=== PATIENT | male | born 1960 | race Caucasian/White ===

== ENCOUNTER → 2023-05-21 09:21 | Outpatient (REF) | payer OTHER, SELFPAY ==
[2023-05-21 12:23] LABS: % Basophils 1.8 % (0-2); % Eosinophils 4.8 % (0-6); % Lymphocytes 40.1 % (20.5-51.1); % Neutrophils 41.3 % (42.2-75.2); Absolute Basophils 0.1 10^3/uL (0-0.2); Absolute Eosinophils 0.2 10^3/uL (0-0.7); Absolute Lymphocytes 1.7 10^3/uL (1.2-3.4); Absolute Monocytes 0.5 10^3/uL (0.1-0.6); Absolute Neutrophils 1.8 10^3/uL (1.4-6.5); Hematocrit 43.4 % (39.0-52.0); Hemoglobin 15.3 g/dL (13.0-18.0); Mean Corp Hgb Conc. 35.3 g/dL (33.0-37.0); Mean Corpuscular Hgb 34.4 pg (27.0-31.0); Mean Corpuscular Volume 97.5 fL (80.0-94.0); Nucleated Red Blood Cells % 0 % (-); Platelet Count 223 10^3/uL (130-400); Red Blood Cell Count 4.45 10^6/uL (4.70-6.10); Red Cell Dist. Width 13.4 % (11.5-14.5); White Blood Cell Count 4.3 10^3/uL (4.8-10.8)
[2023-05-21 12:56] LABS: ALT (SGPT) 35 U/L (0-50); AST (SGOT) 33 U/L (17-59); Albumin 3.8 g/dl (3.5-5.0); Alkaline Phosphatase 79 U/L (38-126); Blood Urea Nitrogen 20 mg/dl (9-20); Carbon Dioxide 25 mmol/L (22-30); Chloride 106 mmol/L (98-107); Glucose 95 mg/dl (70-99); Potassium 3.7 mmol/L (3.5-5.1); Sodium 136 mmol/L (135-145); Total Bilirubin 2.2 mg/dl (0.2-1.3); Total Protein 5.9 g/dl (6.3-8.2); eGFR > 60.00
[2023-05-23 10:40] LABS: Beta-2-Microglobulin 1.9 mg/L (<=3.0)
[2023-05-25 00:27] LABS: Albumin 3.81 g/dL (3.75-5.01); Alpha 1 Globulin 0.31 g/dL (0.19-0.46); Alpha 2 Globulin 0.63 g/dL (0.48-1.05); Free Kappa Light Chains,Quant 10.19 mg/L (3.30-19.40); IgA 64 mg/dL (68-408); IgG 422 mg/dL (768-1632); IgM 28 mg/dL (35-263); Immunofixation Electrophoresis IFE Done; Kappa/Lambda Fr Light Ratio 1.27 (0.26-1.65); Total Protein-Electrophoresis 5.8 g/dL (6.3-8.2)
== END ==
LOC: HWLAB 09:21
PROVIDERS: ATTENDING PHYSICIAN Internal Medicine Hematology & Oncology; FAMILY PHYSICIAN Registered Nurse
DX: C90.00 Multiple myeloma not having achieved remission (principal); E80.4 Gilbert syndrome
CPT/HCPCS: 36415; 80053; 82232; 82784; 83521; 84155; 84165; 85025; 86334

== ENCOUNTER → 2023-06-18 10:33 | Outpatient (REF) | payer OTHER, SELFPAY ==
[2023-06-18 12:02] LABS: % Basophils 1.7 % (0-2); % Eosinophils 3.6 % (0-6); % Immature Granulocytes 0.2 % (0-0.5); % Lymphocytes 39.7 % (20.5-51.1); % Monocytes 11.8 % (1.7-9.3); Absolute Basophils 0.1 10^3/uL (0-0.2); Absolute Eosinophils 0.2 10^3/uL (0-0.7); Absolute Lymphocytes 2.1 10^3/uL (1.2-3.4); Absolute Monocytes 0.6 10^3/uL (0.1-0.6); Absolute Neutrophils 2.3 10^3/uL (1.4-6.5); Hematocrit 42.8 % (39.0-52.0); Mean Corpuscular Hgb 34.2 pg (27.0-31.0); Mean Corpuscular Volume 97.7 fL (80.0-94.0); Mean Platelet Volume 10.2 fL (7.4-10.4); Nucleated Red Blood Cells % 0 % (-); Platelet Count 218 10^3/uL (130-400); Red Blood Cell Count 4.38 10^6/uL (4.70-6.10); Red Cell Dist. Width 13.3 % (11.5-14.5); White Blood Cell Count 5.2 10^3/uL (4.8-10.8)
[2023-06-18 12:26] LABS: ALT (SGPT) 29 U/L (0-50); AST (SGOT) 32 U/L (17-59); Albumin 3.9 g/dl (3.5-5.0); Alkaline Phosphatase 71 U/L (38-126); Blood Urea Nitrogen 17 mg/dl (9-20); Calcium 9.1 mg/dl (8.4-10.2); Carbon Dioxide 27 mmol/L (22-30); Chloride 103 mmol/L (98-107); Glucose 87 mg/dl (70-99); Potassium 4.3 mmol/L (3.5-5.1); Sodium 138 mmol/L (135-145); Total Bilirubin 2.5 mg/dl (0.2-1.3); Total Protein 5.8 g/dl (6.3-8.2); eGFR > 60.00
[2023-06-19 19:13] LABS: Beta-2-Microglobulin 1.9 mg/L (<=3.0)
[2023-06-21 19:37] LABS: Albumin 3.87 g/dL (3.75-5.01); Free Kappa Light Chains,Quant 8.63 mg/L (3.30-19.40); Free Lambda Light Chains,Quant 6.77 mg/L (5.71-26.30); IgA 59 mg/dL (68-408); IgG 391 mg/dL (768-1632); IgM 22 mg/dL (35-263); Immunofixation Electrophoresis IFE Done; Kappa/Lambda Fr Light Ratio 1.27 (0.26-1.65); Total Protein-Electrophoresis 5.8 g/dL (6.3-8.2)
== END ==
LOC: HWLAB 10:33
PROVIDERS: ATTENDING PHYSICIAN Internal Medicine Hematology & Oncology; FAMILY PHYSICIAN Registered Nurse
DX: C90.00 Multiple myeloma not having achieved remission (principal); E80.4 Gilbert syndrome
CPT/HCPCS: 36415; 80053; 82232; 82784; 83521; 84155; 84165; 85025; 86334

== ENCOUNTER → 2023-07-19 09:56 | Outpatient (REF) | payer OTHER, SELFPAY ==
[2023-07-19 13:56] LABS: % Eosinophils 3.1 % (0-6); % Immature Granulocytes 0.2 % (0-0.5); % Lymphocytes 26.8 % (20.5-51.1); % Monocytes 17.2 % (1.7-9.3); % Neutrophils 51.7 % (42.2-75.2); Absolute Basophils 0.1 10^3/uL (0-0.2); Absolute Eosinophils 0.2 10^3/uL (0-0.7); Absolute Lymphocytes 1.6 10^3/uL (1.2-3.4); Absolute Monocytes 1.1 10^3/uL (0.1-0.6); Absolute Neutrophils 3.2 10^3/uL (1.4-6.5); Hematocrit 45.4 % (39.0-52.0); Mean Corp Hgb Conc. 35.2 g/dL (33.0-37.0); Mean Corpuscular Hgb 35.2 pg (27.0-31.0); Mean Corpuscular Volume 99.8 fL (80.0-94.0); Mean Platelet Volume 10.8 fL (7.4-10.4); Nucleated Red Blood Cells % 0 % (-); Platelet Count 233 10^3/uL (130-400); Red Blood Cell Count 4.55 10^6/uL (4.70-6.10); Red Cell Dist. Width 13.2 % (11.5-14.5); White Blood Cell Count 6.1 10^3/uL (4.8-10.8)
[2023-07-19 14:04] LABS: ALT (SGPT) 38 U/L (0-50); AST (SGOT) 36 U/L (17-59); Albumin 4.2 g/dl (3.5-5.0); Alkaline Phosphatase 72 U/L (38-126); Blood Urea Nitrogen 22 mg/dl (9-20); Calcium 9.4 mg/dl (8.4-10.2); Carbon Dioxide 27 mmol/L (22-30); Chloride 105 mmol/L (98-107); Glucose 98 mg/dl (70-99); Potassium 3.7 mmol/L (3.5-5.1); Sodium 137 mmol/L (135-145); Total Protein 6.1 g/dl (6.3-8.2); eGFR > 60.00
[2023-07-21 22:15] LABS: Beta-2-Microglobulin 1.9 mg/L (<=3.0)
[2023-07-22 23:00] LABS: Albumin 4.07 g/dL (3.75-5.01); Alpha 1 Globulin 0.31 g/dL (0.19-0.46); Alpha 2 Globulin 0.63 g/dL (0.48-1.05); Free Lambda Light Chains,Quant 7.49 mg/L (5.71-26.30); IgA 56 mg/dL (68-408); IgG 445 mg/dL (768-1632); IgM 24 mg/dL (35-263); Immunofixation Electrophoresis IFE Done; Kappa/Lambda Fr Light Ratio 1.34 (0.26-1.65); Total Protein-Electrophoresis 6.1 g/dL (6.3-8.2)
== END ==
LOC: HWLAB 09:56
PROVIDERS: ATTENDING PHYSICIAN Internal Medicine Hematology & Oncology; FAMILY PHYSICIAN Registered Nurse
DX: C90.00 Multiple myeloma not having achieved remission (principal); E80.4 Gilbert syndrome
CPT/HCPCS: 36415; 80053; 82232; 82784; 83521; 84155; 84165; 85025; 86334

== ENCOUNTER → 2023-08-13 09:40 | Outpatient (REF) | payer OTHER, SELFPAY ==
[2023-08-13 10:59] LABS: % Basophils 1.7 % (0-2); % Eosinophils 9.2 % (0-6); % Immature Granulocytes 0.3 % (0-0.5); % Lymphocytes 32.7 % (20.5-51.1); % Monocytes 17.5 % (1.7-9.3); % Neutrophils 38.6 % (42.2-75.2); Absolute Basophils 0.1 10^3/uL (0-0.2); Absolute Eosinophils 0.3 10^3/uL (0-0.7); Absolute Lymphocytes 1.1 10^3/uL (1.2-3.4); Absolute Monocytes 0.6 10^3/uL (0.1-0.6); Absolute Neutrophils 1.4 10^3/uL (1.4-6.5); Hematocrit 40.8 % (39.0-52.0); Hemoglobin 14.2 g/dL (13.0-18.0); Mean Corp Hgb Conc. 34.8 g/dL (33.0-37.0); Mean Corpuscular Hgb 34.8 pg (27.0-31.0); Mean Platelet Volume 10.5 fL (7.4-10.4); Nucleated Red Blood Cells % 0 % (-); Platelet Count 193 10^3/uL (130-400); Red Blood Cell Count 4.08 10^6/uL (4.70-6.10); Red Cell Dist. Width 12.6 % (11.5-14.5); White Blood Cell Count 3.5 10^3/uL (4.8-10.8)
[2023-08-13 11:12] LABS: ALT (SGPT) 28 U/L (0-50); AST (SGOT) 30 U/L (17-59); Albumin 3.6 g/dl (3.5-5.0); Alkaline Phosphatase 79 U/L (38-126); Blood Urea Nitrogen 19 mg/dl (9-20); Calcium 8.7 mg/dl (8.4-10.2); Carbon Dioxide 29 mmol/L (22-30); Chloride 104 mmol/L (98-107); Glucose 106 mg/dl (70-99); Potassium 3.8 mmol/L (3.5-5.1); Sodium 139 mmol/L (135-145); Total Bilirubin 1.7 mg/dl (0.2-1.3); Total Protein 5.5 g/dl (6.3-8.2); eGFR > 60.00
== END ==
LOC: HWLAB 09:40
PROVIDERS: ATTENDING PHYSICIAN Internal Medicine Hematology & Oncology; FAMILY PHYSICIAN Registered Nurse
DX: C90.00 Multiple myeloma not having achieved remission (principal); E80.4 Gilbert syndrome
CPT/HCPCS: 36415; 80053; 82232; 82784; 83521; 84155; 84165; 85025; 86334

== ENCOUNTER → 2023-09-03 11:10 | Outpatient (REF) | payer OTHER, SELFPAY ==
[2023-09-03 15:07] LABS: % Basophils 1.3 % (0-2); % Eosinophils 6.2 % (0-6); % Immature Granulocytes 0.2 % (0-0.5); % Lymphocytes 28.4 % (20.5-51.1); % Monocytes 15.7 % (1.7-9.3); % Neutrophils 48.2 % (42.2-75.2); Absolute Basophils 0.1 10^3/uL (0-0.2); Absolute Eosinophils 0.4 10^3/uL (0-0.7); Absolute Lymphocytes 1.7 10^3/uL (1.2-3.4); Absolute Monocytes 0.9 10^3/uL (0.1-0.6); Absolute Neutrophils 2.9 10^3/uL (1.4-6.5); Hematocrit 44.1 % (39.0-52.0); Hemoglobin 15.3 g/dL (13.0-18.0); Mean Corp Hgb Conc. 34.7 g/dL (33.0-37.0); Mean Corpuscular Hgb 34.6 pg (27.0-31.0); Mean Corpuscular Volume 99.8 fL (80.0-94.0); Mean Platelet Volume 10.7 fL (7.4-10.4); Nucleated Red Blood Cells % 0 % (-); Platelet Count 220 10^3/uL (130-400); Red Blood Cell Count 4.42 10^6/uL (4.70-6.10); Red Cell Dist. Width 12.6 % (11.5-14.5)
[2023-09-03 15:16] LABS: Blood Urea Nitrogen 17 mg/dl (9-20); Calcium 9.1 mg/dl (8.4-10.2); Carbon Dioxide 28 mmol/L (22-30); Chloride 103 mmol/L (98-107); Glucose 96 mg/dl (70-99); Potassium 3.5 mmol/L (3.5-5.1); Sodium 140 mmol/L (135-145); eGFR > 60.00
== END ==
LOC: HWLAB 11:10
PROVIDERS: ATTENDING PHYSICIAN Registered Nurse
DX: R05.1 Acute cough (principal)
CPT/HCPCS: 36415; 71046; 80048; 85025

== ENCOUNTER → 2023-09-10 11:43 | Outpatient (REF) | payer OTHER, SELFPAY ==
[2023-09-10 15:37] LABS: % Basophils 1.3 % (0-2); % Eosinophils 10.5 % (0-6); % Immature Granulocytes 0.2 % (0-0.5); % Lymphocytes 33.6 % (20.5-51.1); % Monocytes 11.5 % (1.7-9.3); % Neutrophils 42.9 % (42.2-75.2); Absolute Basophils 0.1 10^3/uL (0-0.2); Absolute Eosinophils 0.5 10^3/uL (0-0.7); Absolute Lymphocytes 1.5 10^3/uL (1.2-3.4); Absolute Monocytes 0.5 10^3/uL (0.1-0.6); Hematocrit 43.2 % (39.0-52.0); Hemoglobin 15.4 g/dL (13.0-18.0); Mean Corp Hgb Conc. 35.6 g/dL (33.0-37.0); Mean Corpuscular Hgb 34.9 pg (27.0-31.0); Mean Platelet Volume 10.9 fL (7.4-10.4); Nucleated Red Blood Cells % 0 % (-); Platelet Count 253 10^3/uL (130-400); Red Blood Cell Count 4.41 10^6/uL (4.70-6.10); Red Cell Dist. Width 12.4 % (11.5-14.5); White Blood Cell Count 4.6 10^3/uL (4.8-10.8)
[2023-09-10 17:58] LABS: ALT (SGPT) 23 U/L (0-50); AST (SGOT) 30 U/L (17-59); Albumin 3.8 g/dl (3.5-5.0); Alkaline Phosphatase 83 U/L (38-126); Blood Urea Nitrogen 16 mg/dl (9-20); Calcium 9.2 mg/dl (8.4-10.2); Carbon Dioxide 26 mmol/L (22-30); Chloride 103 mmol/L (98-107); Glucose 108 mg/dl (70-99); Potassium 3.4 mmol/L (3.5-5.1); Sodium 138 mmol/L (135-145); Total Bilirubin 1.8 mg/dl (0.2-1.3); Total Protein 5.9 g/dl (6.3-8.2); eGFR > 60.00
== END ==
LOC: HWLAB 11:43
PROVIDERS: ATTENDING PHYSICIAN Internal Medicine Hematology & Oncology; FAMILY PHYSICIAN Registered Nurse
DX: C90.00 Multiple myeloma not having achieved remission (principal); E80.4 Gilbert syndrome
CPT/HCPCS: 36415; 80053; 82232; 82784; 83521; 84155; 84165; 85025; 86334

== ENCOUNTER → 2023-10-08 08:36 | Outpatient (REF) | payer OTHER, SELFPAY ==
[2023-10-08 11:52] LABS: % Basophils 1.4 % (0-2); % Eosinophils 8.9 % (0-6); % Immature Granulocytes 0.2 % (0-0.5); % Lymphocytes 33.1 % (20.5-51.1); % Monocytes 17.1 % (1.7-9.3); % Neutrophils 39.3 % (42.2-75.2); Absolute Basophils 0.1 10^3/uL (0-0.2); Absolute Eosinophils 0.4 10^3/uL (0-0.7); Absolute Lymphocytes 1.5 10^3/uL (1.2-3.4); Absolute Monocytes 0.8 10^3/uL (0.1-0.6); Absolute Neutrophils 1.7 10^3/uL (1.4-6.5); Hematocrit 40.5 % (39.0-52.0); Hemoglobin 14.4 g/dL (13.0-18.0); Mean Corp Hgb Conc. 35.6 g/dL (33.0-37.0); Mean Corpuscular Volume 98.5 fL (80.0-94.0); Mean Platelet Volume 10.2 fL (7.4-10.4); Nucleated Red Blood Cells % 0 % (-); Platelet Count 180 10^3/uL (130-400); Red Blood Cell Count 4.11 10^6/uL (4.70-6.10); Red Cell Dist. Width 13.1 % (11.5-14.5); White Blood Cell Count 4.4 10^3/uL (4.8-10.8)
[2023-10-08 12:03] LABS: ALT (SGPT) 28 U/L (0-50); AST (SGOT) 34 U/L (17-59); Albumin 3.8 g/dl (3.5-5.0); Alkaline Phosphatase 85 U/L (38-126); Blood Urea Nitrogen 19 mg/dl (9-20); Calcium 9.1 mg/dl (8.4-10.2); Carbon Dioxide 29 mmol/L (22-30); Chloride 105 mmol/L (98-107); Glucose 88 mg/dl (70-99); Potassium 3.5 mmol/L (3.5-5.1); Sodium 139 mmol/L (135-145); Total Bilirubin 1.9 mg/dl (0.2-1.3); Total Protein 5.8 g/dl (6.3-8.2); eGFR > 60.00
== END ==
LOC: PET 08:36
PROVIDERS: ATTENDING PHYSICIAN Internal Medicine Hematology & Oncology; FAMILY PHYSICIAN Registered Nurse
DX: C90.00 Multiple myeloma not having achieved remission (principal); E80.4 Gilbert syndrome
CPT/HCPCS: 36415; 80053; 82232; 82784; 83521; 84155; 84165; 85025; 86334

== ENCOUNTER → 2023-11-08 11:41 | Outpatient (REF) | payer OTHER, SELFPAY ==
[2023-11-08 14:56] LABS: % Basophils 1.4 % (0-2); % Eosinophils 7.6 % (0-6); % Monocytes 13.7 % (1.7-9.3); % Neutrophils 37.3 % (42.2-75.2); Absolute Basophils 0.1 10^3/uL (0-0.2); Absolute Eosinophils 0.3 10^3/uL (0-0.7); Absolute Lymphocytes 1.7 10^3/uL (1.2-3.4); Absolute Monocytes 0.6 10^3/uL (0.1-0.6); Absolute Neutrophils 1.6 10^3/uL (1.4-6.5); Hematocrit 39.3 % (39.0-52.0); Hemoglobin 13.8 g/dL (13.0-18.0); Mean Corp Hgb Conc. 35.1 g/dL (33.0-37.0); Mean Corpuscular Hgb 34.4 pg (27.0-31.0); Mean Platelet Volume 10.3 fL (7.4-10.4); Nucleated Red Blood Cells % 0 % (-); Platelet Count 196 10^3/uL (130-400); Red Blood Cell Count 4.01 10^6/uL (4.70-6.10); Red Cell Dist. Width 13.5 % (11.5-14.5); White Blood Cell Count 4.3 10^3/uL (4.8-10.8)
[2023-11-08 15:12] LABS: ALT (SGPT) 25 U/L (0-50); AST (SGOT) 33 U/L (17-59); Albumin 3.9 g/dl (3.5-5.0); Alkaline Phosphatase 83 U/L (38-126); Blood Urea Nitrogen 21 mg/dl (9-20); Carbon Dioxide 26 mmol/L (22-30); Chloride 105 mmol/L (98-107); Glucose 94 mg/dl (70-99); Potassium 3.9 mmol/L (3.5-5.1); Sodium 136 mmol/L (135-145); Total Bilirubin 1.9 mg/dl (0.2-1.3); Total Protein 5.9 g/dl (6.3-8.2); eGFR > 60.00
[2023-11-10 23:23] LABS: Beta-2-Microglobulin 1.9 mg/L (<=3.0)
== END ==
LOC: HWLAB 11:41
PROVIDERS: ATTENDING PHYSICIAN Internal Medicine Hematology & Oncology; FAMILY PHYSICIAN Registered Nurse
DX: C90.00 Multiple myeloma not having achieved remission (principal); E80.4 Gilbert syndrome
CPT/HCPCS: 36415; 80053; 82232; 82784; 83521; 84155; 84165; 85025; 86334

== ENCOUNTER → 2023-12-06 09:58 | Outpatient (REF) | payer OTHER, SELFPAY ==
[2023-12-06 12:25] LABS: % Basophils 1.6 % (0-2); % Eosinophils 5.6 % (0-6); % Immature Granulocytes 0.2 % (0-0.5); % Lymphocytes 37.9 % (20.5-51.1); % Monocytes 14.6 % (1.7-9.3); % Neutrophils 40.1 % (42.2-75.2); Absolute Basophils 0.1 10^3/uL (0-0.2); Absolute Eosinophils 0.3 10^3/uL (0-0.7); Absolute Lymphocytes 1.7 10^3/uL (1.2-3.4); Absolute Monocytes 0.7 10^3/uL (0.1-0.6); Absolute Neutrophils 1.8 10^3/uL (1.4-6.5); Hematocrit 42.9 % (39.0-52.0); Hemoglobin 14.9 g/dL (13.0-18.0); Mean Corp Hgb Conc. 34.7 g/dL (33.0-37.0); Mean Corpuscular Volume 100.7 fL (80.0-94.0); Mean Platelet Volume 10.6 fL (7.4-10.4); Nucleated Red Blood Cells % 0 % (-); Platelet Count 195 10^3/uL (130-400); Red Blood Cell Count 4.26 10^6/uL (4.70-6.10); Red Cell Dist. Width 13.2 % (11.5-14.5); White Blood Cell Count 4.5 10^3/uL (4.8-10.8)
[2023-12-06 12:34] LABS: ALT (SGPT) 28 U/L (0-50); AST (SGOT) 36 U/L (17-59); Albumin 3.7 g/dl (3.5-5.0); Alkaline Phosphatase 72 U/L (38-126); Blood Urea Nitrogen 16 mg/dl (9-20); Calcium 9.5 mg/dl (8.4-10.2); Carbon Dioxide 27 mmol/L (22-30); Chloride 105 mmol/L (98-107); Glucose 95 mg/dl (70-99); Potassium 3.8 mmol/L (3.5-5.1); Sodium 143 mmol/L (135-145); Total Bilirubin 1.5 mg/dl (0.2-1.3); Total Protein 5.8 g/dl (6.3-8.2); eGFR > 60.00
[2023-12-07 13:56] LABS: Beta-2-Microglobulin 2.1 mg/L (<=3.0)
[2023-12-09 00:10] LABS: Albumin 3.57 g/dL (3.75-5.01); Alpha 2 Globulin 0.56 g/dL (0.48-1.05); Free Kappa Light Chains,Quant 15.39 mg/L (3.30-19.40); Free Lambda Light Chains,Quant 8.26 mg/L (5.71-26.30); IgA 54 mg/dL (68-408); IgG 537 mg/dL (768-1632); IgM 22 mg/dL (35-263); Immunofixation Electrophoresis IFE Done; Kappa/Lambda Fr Light Ratio 1.86 (0.26-1.65); Total Protein-Electrophoresis 5.5 g/dL (6.3-8.2)
== END ==
LOC: HWLAB 09:58
PROVIDERS: ATTENDING PHYSICIAN Internal Medicine Hematology & Oncology; FAMILY PHYSICIAN Registered Nurse
DX: C90.00 Multiple myeloma not having achieved remission (principal); E80.4 Gilbert syndrome
CPT/HCPCS: 36415; 80053; 82232; 82784; 83521; 84155; 84165; 85025; 86334

== ENCOUNTER → 2024-01-03 10:00 | Outpatient (REF) | payer OTHER, SELFPAY ==
[2024-01-03 12:41] LABS: % Basophils 1.1 % (0-2); % Eosinophils 7.8 % (0-6); % Immature Granulocytes 0.2 % (0-0.5); % Lymphocytes 45.2 % (20.5-51.1); % Neutrophils 33.7 % (42.2-75.2); Absolute Basophils 0.1 10^3/uL (0-0.2); Absolute Eosinophils 0.4 10^3/uL (0-0.7); Absolute Lymphocytes 2.2 10^3/uL (1.2-3.4); Absolute Monocytes 0.6 10^3/uL (0.1-0.6); Absolute Neutrophils 1.6 10^3/uL (1.4-6.5); Hematocrit 41.7 % (39.0-52.0); Hemoglobin 14.9 g/dL (13.0-18.0); Mean Corp Hgb Conc. 35.7 g/dL (33.0-37.0); Mean Corpuscular Volume 95.2 fL (80.0-94.0); Mean Platelet Volume 10.9 fL (7.4-10.4); Nucleated Red Blood Cells % 0 % (-); Platelet Count 172 10^3/uL (130-400); Red Blood Cell Count 4.38 10^6/uL (4.70-6.10); Red Cell Dist. Width 13.2 % (11.5-14.5); White Blood Cell Count 4.8 10^3/uL (4.8-10.8)
[2024-01-03 12:49] LABS: ALT (SGPT) 25 U/L (0-50); AST (SGOT) 26 U/L (17-59); Albumin 3.9 g/dl (3.5-5.0); Alkaline Phosphatase 65 U/L (38-126); Blood Urea Nitrogen 15 mg/dl (9-20); Carbon Dioxide 26 mmol/L (22-30); Chloride 104 mmol/L (98-107); Glucose 105 mg/dl (70-99); Potassium 3.7 mmol/L (3.5-5.1); Sodium 141 mmol/L (135-145); Total Bilirubin 1.8 mg/dl (0.2-1.3); Total Protein 5.6 g/dl (6.3-8.2); eGFR > 60.00
[2024-01-05 21:06] LABS: Beta-2-Microglobulin 2.1 mg/L (<=3.0)
== END ==
LOC: HWLAB 10:00
PROVIDERS: ATTENDING PHYSICIAN Internal Medicine Hematology & Oncology; FAMILY PHYSICIAN Registered Nurse
DX: C90.00 Multiple myeloma not having achieved remission (principal); E80.4 Gilbert syndrome
CPT/HCPCS: 36415; 80053; 82232; 82784; 83521; 84155; 84165; 85025; 86334

== ENCOUNTER → 2024-01-31 10:13 | Outpatient (REF) | payer OTHER, SELFPAY ==
[2024-01-31 11:23] LABS: % Basophils 1.5 % (0-2); % Eosinophils 10.7 % (0-6); % Immature Granulocytes 0.2 % (0-0.5); % Lymphocytes 46.5 % (20.5-51.1); % Neutrophils 27.1 % (42.2-75.2); Absolute Basophils 0.1 10^3/uL (0-0.2); Absolute Eosinophils 0.5 10^3/uL (0-0.7); Absolute Lymphocytes 2.1 10^3/uL (1.2-3.4); Absolute Monocytes 0.6 10^3/uL (0.1-0.6); Absolute Neutrophils 1.2 10^3/uL (1.4-6.5); Hematocrit 41.2 % (39.0-52.0); Hemoglobin 14.8 g/dL (13.0-18.0); Mean Corp Hgb Conc. 35.9 g/dL (33.0-37.0); Mean Corpuscular Hgb 33.4 pg (27.0-31.0); Mean Platelet Volume 10.1 fL (7.4-10.4); Nucleated Red Blood Cells % 0 % (-); Platelet Count 208 10^3/uL (130-400); Red Blood Cell Count 4.43 10^6/uL (4.70-6.10); White Blood Cell Count 4.6 10^3/uL (4.8-10.8)
[2024-01-31 11:55] LABS: ALT (SGPT) 23 U/L (0-50); AST (SGOT) 26 U/L (17-59); Albumin 3.8 g/dl (3.5-5.0); Alkaline Phosphatase 75 U/L (38-126); Blood Urea Nitrogen 18 mg/dl (9-20); Carbon Dioxide 28 mmol/L (22-30); Chloride 101 mmol/L (98-107); Glucose 106 mg/dl (70-99); Potassium 3.6 mmol/L (3.5-5.1); Sodium 138 mmol/L (135-145); Total Bilirubin 2.1 mg/dl (0.2-1.3); Total Protein 5.8 g/dl (6.3-8.2); eGFR > 60.00
[2024-02-01 19:07] LABS: Beta-2-Microglobulin 1.9 mg/L (<=3.0)
[2024-02-03 00:54] LABS: Albumin 3.62 g/dL (3.75-5.01); Alpha 1 Globulin 0.32 g/dL (0.19-0.46); Alpha 2 Globulin 0.63 g/dL (0.48-1.05); Free Kappa Light Chains,Quant 17.92 mg/L (3.30-19.40); Free Lambda Light Chains,Quant 8.56 mg/L (5.71-26.30); IgA 53 mg/dL (68-408); IgG 576 mg/dL (768-1632); IgM 30 mg/dL (35-263); Immunofixation Electrophoresis IFE Done; Kappa/Lambda Fr Light Ratio 2.09 (0.26-1.65); Monoclonal Protein 0.24 g/dL (<=0.00); Total Protein-Electrophoresis 5.7 g/dL (6.3-8.2)
== END ==
LOC: HWLAB 10:13
PROVIDERS: ATTENDING PHYSICIAN Internal Medicine Hematology & Oncology; FAMILY PHYSICIAN Registered Nurse
DX: C90.00 Multiple myeloma not having achieved remission (principal); E80.4 Gilbert syndrome
CPT/HCPCS: 36415; 80053; 82232; 82784; 83521; 84155; 84165; 85025; 86334

== ENCOUNTER 2024-02-12 20:22 | Inpatient (IN) | payer OTHER, SELFPAY ==
[2024-02-12] VITALS (7 sets, daily range): BP systolic 124–153; BP diastolic 88–107; BMI 29.3; BMI 28.9
[2024-02-12 12:31] LABS: ALT (SGPT) 36 U/L (0-50); AST (SGOT) 31 U/L (17-59); Albumin 3.8 g/dl (3.5-5.0); Alkaline Phosphatase 75 U/L (38-126); Blood Urea Nitrogen 19 mg/dl (9-20); Calcium 9.2 mg/dl (8.4-10.2); Carbon Dioxide 27 mmol/L (22-30); Chloride 102 mmol/L (98-107); Estimated Creatinine Clearance 108 ml/min; Glucose 103 mg/dl (70-99); Lipase 45 U/L (23-300); Potassium 4.1 mmol/L (3.5-5.1); Sodium 137 mmol/L (135-145); Total Bilirubin 3.5 mg/dl (0.2-1.3); Total Protein 5.8 g/dl (6.3-8.2); eGFR > 60.00
[2024-02-12 12:40] LABS: % Basophils 0.5 % (0-2); % Eosinophils 1.1 % (0-6); % Immature Granulocytes 0.7 % (0-0.5); % Lymphocytes 15.4 % (20.5-51.1); % Monocytes 7.3 % (1.7-9.3); Absolute Eosinophils 0.1 10^3/uL (0-0.7); Absolute Immature Granulocytes 0.1 10^3/uL (0-0.05); Absolute Lymphocytes 1.2 10^3/uL (1.2-3.4); Absolute Monocytes 0.6 10^3/uL (0.1-0.6); Hematocrit 43.3 % (39.0-52.0); Hemoglobin 14.9 g/dL (13.0-18.0); Mean Corp Hgb Conc. 34.4 g/dL (33.0-37.0); Mean Corpuscular Hgb 34.4 pg (27.0-31.0); Mean Platelet Volume 10.5 fL (7.4-10.4); Nucleated Red Blood Cells % 0 % (-); Platelet Count 166 10^3/uL (130-400); Red Blood Cell Count 4.33 10^6/uL (4.70-6.10); Red Cell Dist. Width 13.6 % (11.5-14.5)
[2024-02-12 12:42] LABS: Troponin I < 0.012 ng/ml
[2024-02-12] MEDS: MORPHINE SULFATE 4 MG IV ×2 (13:13→14:53)
--- NOTE | 2024-02-12 14:21 | ED.GENMED ---
History of Present Illness
General
Chief Complaint: Back Pain
Source: patient
Exam Limitations: none
Time Seen by Provider: 02/12/24 11:42
History of Present Illness
History of Present Illness:
63-year-old male who presents with pain in his upper abdominal region rating around toward his back. Patient states symptoms started yesterday. He was lifting firewood the day before yesterday so wonders if it is musculoskeletal but the patient
states that the pain persist. He was not really able to sleep well. Pain is a little worse when he lays back. 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 Patient denies shortness of breath. No vomiting. No
fevers.
Past History
Past History
ED Past Medical History: Cancer (Multiple myeloma) and Other (Anxiety, Gillbert's syndrome)
ED Past Surgical History: None
Social History
Tobacco: Smoker
Alcohol: Occasional
Personal:
Living: with family
Employment: Employed
Phy Exam
Physical Exam
Physical Exam:
CONSTITUTIONAL Patient alert and oriented to person, place and time. Well-appearing. Vital signs reviewed.
HEAD atraumatic, normocephalic.
EYES eyelids normal to inspection, Extraocular muscles intact, Conjunctiva normal, Sclera normal.
NECK normal range of motion, Trachea midline, no jugular venous distention.
RESPIRATORY CHEST No respiratory distress noted, Chest expansion equal, Bilateral breath sounds clear.
CARDIOVASCULAR regular rate and rhythm, Heart sounds normal.
ABDOMEN moderate epigastric tenderness, Bowel sounds normal. No distention.
BACK normal inspection, no obvious deformities
UPPER EXTREMITY range of motion normal, Motor strength normal, no cyanosis, no edema.
LOWER EXTREMITY range of motion normal, Motor strength normal, no cyanosis, no edema.
NEURO Speech normal, No focal motor deficits, Judi coma scale 15, Memory normal, Cranial Nerves intact to screening exam.
SKIN skin warm, dry, and normal in color.
Course
Orders/Labs/Results
Orders:
Orders
02/12/24 11:53
Electrocardiogram (*1) Stat
Reason for Study: Abdominal Pain
EKG- Treatment ONCE
02/12/24 12:03
Complete Blood Count/With Diff Urgent
Comprehensive Metabolic Panel Urgent
Direct Bilirubin Urgent
Lipase Urgent
Troponin I Urgent
02/12/24 12:48
CT Chest/abd/pelvis Angio W/wo Urgent
Comment:
Reason For Exam: chest, back and upper abd pain
02/12/24 13:11
Morphine Sulfate 4 mg .ROUTE .STK-MED ONE
02/12/24 13:13
Morphine Sulfate 4 mg IV NOW STA
02/12/24 13:59
Urinalysis Reflex To Culture Urgent
Date Specimen was Collected: 02/12/24
Time Specimen was Collected: 13:52
02/12/24 14:45
Morphine Sulfate 4 mg IV NOW STA
02/12/24 17:08
Piperacillin/Tazo 3.375 Gram [Zosyn] 3.375 gram in 50 ml IV NOW
02/12/24 17:26
Add On- LAB Urgent
Tests Added?: direct bilirubin
02/12/24 17:31
US Abdomen Limited Urgent
Comment:
Reason For Exam: RUQ abdominal pain
Abnormal Lab Results
02/12/24 02/12/24
12:03 13:59
RBC 4.33 L 10^6/uL
(4.70-6.10)
MCV 100.0 H fL
(80.0-94.0)
MCH 34.4 H pg
(27.0-31.0)
MPV 10.5 H fL
(7.4-10.4)
Abs Immat Gran (auto) 0.1 H 10^3/uL
(0-0.05)
Immature Gran % 0.7 H %
(0-0.5)
Lymphocytes % 15.4 L %
(20.5-51.1)
Glucose 103 H mg/dl
(70-99)
Total Bilirubin 3.5 H mg/dl
(0.2-1.3)
Total Protein 5.8 L g/dl
(6.3-8.2)
Urine Ketones 2+ A
(Negative)
02/12/24 12:03
02/12/24 12:03
Vital Signs
Initial and Last Documented VS:
Initial Vital Signs
Temp Pulse Resp BP Pulse Ox
98.2 F 82 18 153/107 95
02/12/24 11:12 02/12/24 11:12 02/12/24 11:12 02/12/24 11:12 02/12/24 11:12
Last Documented Vital Signs
Temp Pulse Resp BP Pulse Ox
98.2 F 64 21 148/99 97
02/12/24 11:12 02/12/24 17:00 02/12/24 17:00 02/12/24 13:13 02/12/24 17:15
MDM/Problems Addressed
MDM/Problems Addressed:
Cholelithiasis, cholecystitis, chronic multiple myeloma
*Radiology
Radiology exam reviewed: preliminary read by ED provider (Gallbladder neck stone with suspected cholecystitis)
*Pulse Oximetry
Patient hypoxic: no
*EKG
Interpreted by ED Provider?: Yes
Interpretation: normal
Rate: normal
Rhythm: sinus
QRS Pattern: normal QRS
Ischemia: no ischemia
*Fruit Sorter Interpretation
Rate: normal
Interpretation: normal
Rhythm: sinus
*Critical Care Note
Total Time (30-74mins, 75-104mins- exclusive of procedures): Not Applicable
Data Reviewed
Source: patient and family
Patient Management
Discussion with other providers: Hospitalist and Kier Pleater (Case discussed with general surgery)
Escalation/DeEscalation of care consider admission/obs:
63-year-old male with persistent pain in the upper abdomen and back. Found to have gallbladder neck stone and cholecystitis. IV antibiotics and admit. Case discussed with surgery
ED Attending Note
-
Portions of this chart may have been created with voice recognition software.� Occasional wrong word or��sound alike� substitutions may have occurred due to the inherent limitations of voice recognition software.
Discharge Plan
Departure
Patient Disposition: Admit
Date of Disposition: 02/12/24
Time of Disposition: 17:10
Admit to: Med/Surg
Presentation/result/management discussed w/ accepting MD/DO: Hospitalist
Discharge Problem:
Acute cholecystitis, Cholelithiasis, Gilbert syndrome
Prescriptions:
No Action
bupropion HCl 300 MG tablet extended release 24 hr
300 mg PO DAILY
atorvastatin 40 MG tablet
40 mg PO QPM Qty: 30 0RF
aspirin 81 MG tablet,chewable
81 mg PO DAILY Qty: 30 0RF
acyclovir 400 mg tablet
400 mg PO BID
pantoprazole 20 mg tablet,delayed release (DR/EC)
20 mg PO DAILY
escitalopram oxalate 10 mg tablet
10 mg PO DAILY
pregabalin 75 mg capsule
75 mg PO QPM
metoprolol succinate 25 MG tablet extended release 24 hr
25 mg PO QPM
Referrals:
Osmin Elam CRNP [Family Provider] -
Interventions
Interventions:
*Risk Screen - Suicide Last Done: 02/12/24 11:12
*General Assessment Last Done: 02/12/24 11:12
*Neglect/Abuse Screening Last Done: 02/12/24 11:12
ED-Musculoskeletal Assessment Last Done: 02/12/24 12:13
Discharge Date and Time
Print Language: LITHUANIAN
[2024-02-12 14:42] LABS: Urine Albumin Negative (Neg - Trace); Urine Bilirubin Negative (Negative); Urine Character Clear (Clear); Urine Color Yellow; Urine Glucose Negative (Negative); Urine Ketone 2+ (Negative); Urine Leukocyte Negative (Negative); Urine Nitrite Negative (Negative); Urine Occult Blood Negative (Negative); Urine Specific Gravity 1.015 (<1.030); Urine Urobilinogen Negative (Neg - 1+)
[2024-02-12] MEDS: ZOSYN 50 IV ×2 (17:22→23:53)
[2024-02-12 18:00] LABS: Direct Bilirubin 0.2 mg/dl (0.0-0.4)
[2024-02-12] MEDS: DILAUDID 1 MG IV (18:00)
--- NOTE | 2024-02-12 19:37 | HPS.HSE ---
Family Physician
-
Family Physician: MICHAEL Bello
Chief Complaint
-
abdominal pain
History of Present Illness
63-year-old male past medical history of multiple myeloma, hypertension, anxiety, Gilbert's syndrome, hyperlipidemia presenting with right upper abdominal pain rating around to his back starting yesterday. He denies any nausea or vomiting. Denies
any diarrhea. He denies any chest pain or shortness of breath.
He smokes occasionally. He drinks alcohol occasionally.
He has multiple family members who have had their gallbladders removed.
Medical History
Past Medical History
Past Medical History: Reports Other (multiple myeloma, hypertension, anxiety, Gilbert's syndrome, hyperlipidemia)
Past Surgical History: Reports None
Social History
Tobacco: Smoker
Alcohol: Occasional
Drug: None
Family History
Family History: Not pertinent
Allergies / Home Medications
Allergies reflects when Allergies were last updated in [facility].
Home Medications with original date entered in [facility]
Allergy/Medication List:
Allergies
Allergy/AdvReac Type Severity Reaction Status Date / Time
No Known Allergies Allergy Verified 02/12/24 11:12
Home Medications
bupropion HCl 300 mg 24 hr tablet, extended release 300 mg PO DAILY Mental Health/Anxiety 12/05/19
aspirin 81 mg chewable tablet 81 mg PO DAILY #30 tabs 12/09/19
atorvastatin 40 mg tablet 40 mg PO QPM #30 tabs 12/09/19
acyclovir 400 mg tablet 400 mg PO BID 02/12/24
escitalopram oxalate 10 mg tablet 10 mg PO DAILY 02/12/24
metoprolol succinate 25 mg tablet,extended release 24 hr 25 mg PO QPM 02/12/24
pantoprazole 20 mg tablet,delayed release 20 mg PO DAILY 02/12/24
pregabalin 75 mg capsule 75 mg PO QPM 02/12/24
Review of Systems
-
History Source: Patient
A 12 point ROS was completed and negative except as noted: Yes
Constitutional: Reports No Symptoms
EENT: Reports No Symptoms
Respiratory: Reports No Symptoms
Cardiac: Reports No Symptoms
Abdomen/GI: Reports See HPI
: Reports No Symptoms
Musculoskeletal: Reports No Symptoms
Skin: Reports No Symptoms
Neurological: Reports No Symptoms
Endocrine: Reports No Symptoms
Hematologic/Lymphatic: Reports No Symptoms
Psych: Reports No Symptoms
Physical Exam
Vital Signs
Vital Signs
Temp Pulse Resp BP Pulse Ox
98.2 F 64 21 148/99 97
02/12/24 11:12 02/12/24 17:00 02/12/24 17:00 02/12/24 13:13 02/12/24 17:15
Physical Exam
General: Well Developed, Well Nourished and No Apparent Distress
HEENT: NormoCephalic, Moist mucous membranes and Atraumatic
Respiratory: Clear
Cardiac: S1/S2 and Regular Rhythm; No Murmur or Rub
GI: Soft, Non Distended, Normal Bowel Sounds and Tender (RUQ ); No Organomegaly
Rectal: Deferred by Provider
Musculoskeletal: No Clubbing, No Cyanosis and No Edema
Skin: No Rash
Neuro: Nonfocal/grossly intact
Laboratory Results
-
02/12/24 12:03
02/12/24 12:03
Laboratory Results
Total Bilirubin 3.5 mg/dl (0.2-1.3) H 02/12/24 12:03
AST 31 U/L (17-59) 02/12/24 12:03
ALT 36 U/L (0-50) 02/12/24 12:03
Alkaline Phosphatase 75 U/L (38-126) 02/12/24 12:03
Troponin I < 0.012 ng/ml 02/12/24 12:03
Lipase 45 U/L (23-300) 02/12/24 12:03
Data Reviewed
-
Lab Data: Labs Reviewed by me
Old Records: Reviewed
Impression/Plan
-
IMPRESSION:
PLAN:
# Acute cholecystitis
-CT chest abdomen pelvis shows acute cholecystitis
-Ultrasound pending
-N.p.o.
-IV fluids
-Zosyn
-Dilaudid
-General Surgery consult
Multiple myeloma
-Continue prophylactic acyclovir
Gilbert's syndrome
Anxiety/depression
-Continue bupropion, Lexapro
GERD
-Continue Protonix
Hypertension
-Continue metoprolol
Hyperlipidemia
-Continue statin
Spinal Stenosis
-continue pregabalin
Full code
DVT prophylaxis-SCDs
N.p.o.
[2024-02-12] MEDS: DILAUDID 0.5 MG IV (21:16)
[2024-02-12] MEDS: NSS 1000 IV (21:16)
[2024-02-12] MEDS: ZOVIRAX 400 MG PO (21:16)
[2024-02-13] MEDS: DILAUDID 0.5 MG IV ×5 (00:12→21:22)
[2024-02-13 05:47] LABS: % Basophils 0.7 % (0-2); % Eosinophils 0.8 % (0-6); % Immature Granulocytes 0.5 % (0-0.5); % Lymphocytes 16.6 % (20.5-51.1); % Monocytes 9.1 % (1.7-9.3); % Neutrophils 72.3 % (42.2-75.2); Absolute Basophils 0.1 10^3/uL (0-0.2); Absolute Eosinophils 0.1 10^3/uL (0-0.7); Absolute Lymphocytes 1.4 10^3/uL (1.2-3.4); Absolute Monocytes 0.8 10^3/uL (0.1-0.6); Absolute Neutrophils 6.1 10^3/uL (1.4-6.5); Hematocrit 42.7 % (39.0-52.0); Hemoglobin 14.3 g/dL (13.0-18.0); Mean Corp Hgb Conc. 33.5 g/dL (33.0-37.0); Mean Corpuscular Hgb 34.1 pg (27.0-31.0); Mean Corpuscular Volume 101.9 fL (80.0-94.0); Mean Platelet Volume 10.8 fL (7.4-10.4); Nucleated Red Blood Cells % 0 % (-); Platelet Count 159 10^3/uL (130-400); Red Blood Cell Count 4.19 10^6/uL (4.70-6.10); Red Cell Dist. Width 13.8 % (11.5-14.5); White Blood Cell Count 8.4 10^3/uL (4.8-10.8)
[2024-02-13] MEDS: ZOSYN 50 IV ×4 (06:04→23:47)
[2024-02-13 06:26] LABS: ALT (SGPT) 133 U/L (0-50); AST (SGOT) 110 U/L (17-59); Albumin 3.6 g/dl (3.5-5.0); Alkaline Phosphatase 109 U/L (38-126); Blood Urea Nitrogen 13 mg/dl (9-20); Calcium 8.3 mg/dl (8.4-10.2); Carbon Dioxide 29 mmol/L (22-30); Chloride 98 mmol/L (98-107); Estimated Creatinine Clearance 95 ml/min; Glucose 88 mg/dl (70-99); Potassium 3.7 mmol/L (3.5-5.1); Sodium 138 mmol/L (135-145); Total Bilirubin 4.6 mg/dl (0.2-1.3); Total Protein 5.7 g/dl (6.3-8.2); eGFR > 60.00
[2024-02-13 07:59] VITALS: BP 149/82
--- NOTE | 2024-02-13 08:34 | CON.GS ---
Medical History
-
Chief Complaint: RUQ pain
History of Present Illness:
Mr. Cash is a 63 yo male with a h/o Gilbert's and multiple myeloma on immunotherapy (Darzalex LD on January 31 and Revlimid cycles) who presents with persistent right upper quadrant pain radiating into his back and up into his shoulders for
the past 2 days. He denies prior episodes. He denies nausea, vomiting, fevers or chills. He denies bowel or bladder changes. On exam, there is tenderness to the RUQ without rebound, guarding or rigidity.
Past Medical History
Past Medical History: Cancer (multiple myeloma on active treatment with immunotherapy, XRT in 2019 to chest and shoulder), Hypercholesterolemia, Psychiatric (depression/anxiety) and Other (neuropathy and obesity)
Past Surgical History: None
Social History
Tobacco: Non-Smoker
Alcohol: Occasional
Living: With Family
Family History
Family History: Reviewed & Not Pertinent
Allergies / Home Medications
Allergy/AdvReac Type Severity Reaction Status Date / Time
No Known Allergies Allergy Verified 02/12/24 11:12
�Medication �Instructions �Recorded �Confirmed �Type
bupropion HCl 300 mg 24 hr tablet, 300 mg PO DAILY Mental 12/05/19 02/12/24 History
extended release Health/Anxiety
aspirin 81 mg chewable tablet 81 mg PO DAILY #30 tabs 12/09/19 02/12/24 Rx
atorvastatin 40 mg tablet 40 mg PO QPM #30 tabs 12/09/19 02/12/24 Rx
acyclovir 400 mg tablet 400 mg PO BID 02/12/24 02/12/24 History
escitalopram oxalate 10 mg tablet 10 mg PO DAILY 02/12/24 02/12/24 History
metoprolol succinate 25 mg 25 mg PO QPM 02/12/24 02/12/24 History
tablet,extended release 24 hr
pantoprazole 20 mg tablet,delayed 20 mg PO DAILY 02/12/24 02/12/24 History
release
pregabalin 75 mg capsule 75 mg PO QPM 02/12/24 02/12/24 History
Review of Systems
-
History Source: Patient
All other systems: Negative unless noted
A 10 point review of systems was completed, and was negative except as per HPI.
Physical Exam
Vital Signs
Temp Pulse Resp BP Pulse Ox
99.7 F 76 16 149/82 98
02/13/24 07:59 02/13/24 07:59 02/13/24 07:59 02/13/24 07:59 02/13/24 07:59
02/12/24 02/13/24 02/14/24
06:59 06:59 06:59
Actual Weight 88.677 kg
Body Mass Index (BMI) 28.9
Lab Results
02/13/24 04:15
02/13/24 04:15
WBC 8.4 10^3/uL (4.8-10.8) 02/13/24 04:15
Hgb 14.3 g/dL (13.0-18.0) 02/13/24 04:15
Hct 42.7 % (39.0-52.0) 02/13/24 04:15
Plt Count 159 10^3/uL (130-400) 02/13/24 04:15
Abs Immat Gran (auto) 0.0 10^3/uL (0-0.05) 02/13/24 04:15
Neutrophils % 72.3 % (42.2-75.2) 02/13/24 04:15
Physical Exam
General: Well Developed and Well Nourished
HEENT: Moist Mucous Membranes
Respiratory: Non Labored Respirations
GI: Soft, Non Distended and Tender (RUQ)
Skin: Warm and Dry
Data Reviewed
-
CT Scan: Image Personally Visualized and interpreted, Report Reviewed by me, Discussed with Physician and Discussed with Patient
Ultrasound: Image Personally Visualized and interpreted, Report Reviewed by me and Discussed with Physician
Labs: Labs Reviewed by me, Discussed with Physician and Discussed with Patient
Old Records: Reviewed
Assessment / Plan
-
63 yo male with a history of Gilbert's and multiple myeloma on immunotherapy (Darzalex LD on January 31 and Revlimid cycles) who presents with persistent right upper quadrant pain radiating into his back and up into his shoulders for the past [address] and US imaging reviewed with large gallstone at the gallbladder neck and evidence of acute cholecystitis present. He has no leukocytosis. Bilirubin somewhat elevated from his baseline but with normal direct bilirubin noted. He is afebrile
with stable vital signs.
--Will plan laparoscopic cholecystectomy in the AM
--Ok for cld today and then NPO after MN
--Continue IV abx
--Analgesics/antiemetics prn
--Medical management as per primary team
--- NOTE | 2024-02-13 08:52 | W.PN.HOSP.TC ---
Today's Communication/Plan
-
plan for david tomorrow
appreciate GS
Assessment / Plan
Assessment / Plan
CTA Chest/Abdomen Pelvis 02/12/24
IMPRESSION: New findings suggesting acute cholecystitis. Confirmation with ultrasound is recommended. Associated stable gallstone.
1 mm nonobstructing left renal stone. Stable
Multiple compression fractures. Stable
Stable changes about the anterior right sixth rib seen by recent PET imaging. Suspected chronic fractures per PET report.
Abdomen US 02/12/24:
IMPRESSION: Findings consistent with acute cholecystitis. New.
Clinical and laboratory correlation recommended. This does decrease in size.
Hepatic fatty infiltration. New.
Incomplete visualization of pancreas due to overlying bowel gas.
Nonobstructing left renal stone. New.
Acute cholecystitis
-appreciate GS, plan for OR tomorrow
-clears today, NPO after MN
-IV fluids
-Zosyn
-Dilaudid
Multiple myeloma
-Continue prophylactic acyclovir
Gilbert's syndrome
Anxiety/depression
-Continue bupropion, Lexapro
GERD
-Continue Protonix
Hypertension
-Continue metoprolol
Hyperlipidemia
-hold statin with elevated liver enzymes, NPO status
Spinal Stenosis
-continue pregabalin
Full code
DVT prophylaxis-SCDs
N.p.o.
Anticipated Discharge: 24 - 48 hours
Subjective/Interval History
-
Date of Service: February 13, 2024
pain RUQ
no fevers/chills
Objective Data
-
Labs:
Laboratory Results
02/13/24
04:15
WBC 8.4
Hgb 14.3
Hct 42.7
Plt Count 159
Sodium 138
Potassium 3.7
Chloride 98
Carbon Dioxide 29
BUN 13
Creatinine 0.8
Glucose 88
Calcium 8.3 L
Total Bilirubin 4.6 H
AST 110 H
ALT 133 H
Alkaline Phosphatase 109
Vital Signs:
Vital Signs
Temp Pulse Resp BP Pulse Ox
99.7 F 76 16 149/82 98
02/13/24 07:59 02/13/24 07:59 02/13/24 07:59 02/13/24 07:59 02/13/24 07:59
I&O
02/12/24 02/13/24 02/14/24
06:59 06:59 06:59
Intake Total 1060 / 1060
Balance 1060 / 1060
Review of Systems
-
History Source: Patient
All other systems: Reviewed and negative
Physical Exam
-
General: No Apparent Distress
HEENT: PERRLA
Respiratory: Clear to Auscultation; Negative Wheezes
Cardiac: S1/S2
GI: Other (RUQ tenderness, no rebound or guarding)
Musculoskeletal: No Edema
Skin: Warm and Dry; Negative Rash
Neuro: AO x 3
Psych: Calm
Data Reviewed
-
Diagnostic Radiology: Report Reviewed by me
Labs: Labs Reviewed by me
[2024-02-13] MEDS: WELLBUTRIN XL (24 hour extended release) 300 MG PO (09:00)
[2024-02-13] MEDS: ZOVIRAX 400 MG PO ×2 (09:01→19:27)
[2024-02-13] MEDS: PROTONIX 20 MG PO (09:01)
[2024-02-13] MEDS: LEXAPRO 10 MG PO (09:01)
[2024-02-13] MEDS: NSS 1000 IV (11:42)
[2024-02-13 15:45] VITALS: BP 125/79
[2024-02-13] MEDS: TOPROL XL 25 MG PO (17:16)
[2024-02-13] MEDS: LYRICA 75 MG PO (17:16)
[2024-02-13 23:15] VITALS: BP 124/76
[2024-02-14] VITALS (12 sets, daily range): BP systolic 108–147; BP diastolic 74–98
[2024-02-14 05:45] LABS: % Basophils 0.3 % (0-2); % Eosinophils 0.5 % (0-6); % Immature Granulocytes 0.3 % (0-0.5); % Lymphocytes 13.8 % (20.5-51.1); % Monocytes 8.3 % (1.7-9.3); % Neutrophils 76.8 % (42.2-75.2); Absolute Eosinophils 0.1 10^3/uL (0-0.7); Absolute Lymphocytes 1.3 10^3/uL (1.2-3.4); Absolute Monocytes 0.8 10^3/uL (0.1-0.6); Absolute Neutrophils 7.1 10^3/uL (1.4-6.5); Hematocrit 38.7 % (39.0-52.0); Hemoglobin 13.4 g/dL (13.0-18.0); Mean Corp Hgb Conc. 34.6 g/dL (33.0-37.0); Mean Corpuscular Hgb 35.1 pg (27.0-31.0); Mean Corpuscular Volume 101.3 fL (80.0-94.0); Mean Platelet Volume 10.8 fL (7.4-10.4); Nucleated Red Blood Cells % 0 % (-); Platelet Count 145 10^3/uL (130-400); Red Blood Cell Count 3.82 10^6/uL (4.70-6.10); Red Cell Dist. Width 13.7 % (11.5-14.5); White Blood Cell Count 9.2 10^3/uL (4.8-10.8)
[2024-02-14] MEDS: ZOSYN 50 IV ×2 (05:49→17:05)
[2024-02-14 06:08] LABS: ALT (SGPT) 77 U/L (0-50); AST (SGOT) 39 U/L (17-59); Albumin 3.1 g/dl (3.5-5.0); Alkaline Phosphatase 110 U/L (38-126); Blood Urea Nitrogen 10 mg/dl (9-20); Carbon Dioxide 30 mmol/L (22-30); Chloride 97 mmol/L (98-107); Estimated Creatinine Clearance 84 ml/min; Glucose 86 mg/dl (70-99); Magnesium 1.6 mg/dl (1.6-2.3); Potassium 3.6 mmol/L (3.5-5.1); Sodium 136 mmol/L (135-145); Total Bilirubin 3.8 mg/dl (0.2-1.3); Total Protein 5.1 g/dl (6.3-8.2); eGFR > 60.00
[2024-02-14] MEDS: WELLBUTRIN XL (24 hour extended release) 300 MG PO (08:32)
[2024-02-14] MEDS: PROTONIX 20 MG PO (08:32)
[2024-02-14] MEDS: ZOVIRAX 400 MG PO ×2 (08:33→19:49)
[2024-02-14] MEDS: LEXAPRO 10 MG PO (08:33)
--- NOTE | 2024-02-14 10:23 | W.SUR.PREOP ---
Pre-Operative Surgical Note
-
I have examined this patient prior to the performance of the scheduled procedure.
The patient's condition is unchanged from the time of the current History and
Physical and the patient is able to undergo the scheduled procedure.
[2024-02-14] MEDS: ZOSYN IV (11:20)
--- NOTE | 2024-02-14 11:28 | W.PN.HOSP.TC ---
Today's Communication/Plan
-
Monitor vital signs
see plan
Clears per surgery
Pain control
Continue with antibiotics for now
Assessment / Plan
Assessment / Plan
CTA Chest/Abdomen Pelvis 02/12/24
IMPRESSION: New findings suggesting acute cholecystitis. Confirmation with ultrasound is recommended. Associated stable gallstone.
1 mm nonobstructing left renal stone. Stable
Multiple compression fractures. Stable
Stable changes about the anterior right sixth rib seen by recent PET imaging. Suspected chronic fractures per PET report.
Abdomen US 02/12/24:
IMPRESSION: Findings consistent with acute cholecystitis. New.
Clinical and laboratory correlation recommended. This does decrease in size.
Hepatic fatty infiltration. New.
Incomplete visualization of pancreas due to overlying bowel gas.
Nonobstructing left renal stone. New.
Acute cholecystitis
Surgery following, status post laparoscopic cholecystectomy with cholangiogram
-clears today per surgery, regular diet tomorrow
-Zosyn for now
pain control
Multiple myeloma
-Continue prophylactic acyclovir
Gilbert's syndrome
Anxiety/depression
-Continue bupropion, Lexapro
GERD
-Continue Protonix
Hypertension
-Continue metoprolol
Hyperlipidemia
-hold statin with elevated liver enzymes
Spinal Stenosis
-continue pregabalin
Full code
DVT prophylaxis-SCDs
General: No Apparent Distress
HEENT: PERRLA
Respiratory: Clear to Auscultation; Negative Wheezes
Cardiac: S1/S2
GI: laparoscopic incision; mild tenderness
Musculoskeletal: No Edema
Neuro: AO x 3
Psych: Calm
Anticipated Discharge: Within 24 hours
Subjective/Interval History
-
Date of Service: February 14, 2024
has pain
Objective Data
-
Labs:
Laboratory Results
02/14/24
04:39
WBC 9.2
Hgb 13.4
Hct 38.7 L
Plt Count 145
Sodium 136
Potassium 3.6
Chloride 97 L
Carbon Dioxide 30
BUN 10
Creatinine 0.9
Glucose 86
Calcium 8.0 L
Total Bilirubin 3.8 H
AST 39
ALT 77 H
Alkaline Phosphatase 110
Vital Signs:
Vital Signs
Temp Pulse Resp BP Pulse Ox
98.6 F 69 17 143/83 98
02/14/24 07:27 02/14/24 07:27 02/14/24 07:27 02/14/24 07:27 02/14/24 07:27
I&O
02/13/24 02/14/24 02/15/24
06:59 06:59 06:59
Intake Total 1060 / 1060 2029
Output Total 1000 / 1000
Balance 1060 / 1060 2029 -1000 / -1000
--- NOTE | 2024-02-14 13:36 | W.IMMPOSTOP ---
Surgical Immed Post Op Note
-
Primary Surgeon: Stephen Newberry MD
Assisting Surgeon: None
Pre-op Diagnosis: Acute cholecystitis
Post-op Diagnosis: Acute on chronic cholecystitis
Procedure Performed: Laparoscopic cholecystectomy with cholangiogram
Anesthesia Type: General
Specimen / Cultures: Gallbladder and contents
Estimated Blood Loss: 11 cc
Complications: None
Operative Findings: Tense gallbladder with very thickened gallbladder wall. Critical view of safety obtained prior to a cholangiogram which demonstrated no distal filling defects and normal biliary anatomy. Very thickened posterior wall of the
gallbladder, gallbladder entered with some spillage of bile but no stones. Epigastric 12 port had to be enlarged to remove the stone.
POST OP PLAN:
Imaging: None
Labs: Routine AM
Diet: Clears tonight, regular diet tomorrow
Analgesia: Tylenol 650mg q6 Chandrika, Antonia 5mg q6 PRN, Dilaudid 0.5mg q2h PRN
Neuro/vascular checks: q4h
AC/AP: Hold Therapeutic AC, Ok for DVT PPx
Activity: Ad Pamela
Wound/Incisions/Drains: Routine
Abx: Continue antibiotics x 24 hours
Dispo: RNF, anticipate discharge home tomorrow
--- NOTE | 2024-02-14 14:35 | PTCARENOTE ---
Pt returned from PACU in bed. 5 abdominal lap sites glued and KETTLE FIRER. Pt instructed to ring for assistance getting OOB, verbalized understanding. Bed locked and in the lowest position, safety maintained. Oriented to room and call gillespie.
--- NOTE | 2024-02-14 15:48 | CM ---
Adm dx - Cholecystitis
Met with pt and his at bedside
Pt reports he lives with his in a 2 story home; no steps to enter, 12 steps to 2nd fl
Independent at baseline, self-employed, drives
DME - none
SNF/HH denies past hx
Has ride at discharge
PCP - Osmin Elam
Pharm - [facility] - [address] [facility]
Plan - anticipate home no needs when medically stable
[2024-02-14] MEDS: DILAUDID 0.5 MG IV ×2 (15:57→23:07)
--- NOTE | 2024-02-14 15:58 | OR.RPT ---
Operative Report
Operative Report
Patient Name: Hector Cash
: 1960
Date of Operation: 02/14/2024
Preoperative Diagnosis: Acute cholecystitis
Postoperative Diagnosis: Acute on chronic cholecystitis
Procedure(s):
Laparoscopic Cholecystectomy with Cholangiogram
Surgeon(s):
Dr. Newberry
Silviculturist(s):
SYED Magana
Anesthesia: General
Estimated Blood Loss: 11 cc
Urine Output: None
Drains/Lines/Implants: None
Specimens:
1. Gallbladder and contents
HPI/Surgical Indications:
This is age/sex who presents with days abdominal pain. Exam, labs and imaging are consistent with early acute cholecystitis. Risks/Benefits/Alternatives were discussed at length, and the patient agreed to proceed with surgery.
Operative Findings: Tense gallbladder with very thickened gallbladder wall. Critical view of safety obtained prior to a cholangiogram which demonstrated no distal filling defects and normal biliary anatomy. Very thickened posterior wall of the
gallbladder, gallbladder entered with some spillage of bile but no stones. Epigastric 12 port had to be enlarged to remove the stone.
Procedure Description:
The patient was brought to the Operating Room and placed in the supine position with one arm tucked. Following uneventful induction of general endotracheal anesthesia, an orogastric tube was placed. The abdomen was prepped and draped in the usual
sterile fashion. A timeout was performed confirming the procedure, consent, and that IV antibiotics were infused and sequential compression devices were confirmed to be on. The abdomen was entered using a left subcostal Veress technique which
required a single pass followed by a 5 mm right upper quadrant Optiview trocar. Pneumoperitoneum to 15 mmHg pressure was obtained without difficulty and we confirmed that no injury had occurred during our entry. The patient was positioned in
reverse Trendelenberg and rotated with the right side up slightly. Two 5mm trocars were then placed along the right subcostal margin, followed by a 12 mm port in the epigastrium. The gallbladder was significantly distended and emptied using a
decompressing needle through the fundus of the gallbladder with evacuation of hydrops before A locking grasping forceps was placed on the fundus of the gallbladder where it was then retracted cephalad and to the right. Using appropriate grasping
instruments, the peritoneum overlying the triangle of Calot was incised and extended superiorly on both the anterior and posterior gallbladder deras. The infundibulum was dissected off the cystic plate. The cystic triangle was dissected until a
critical view of safety was achieved. The cystic artery was medialized, dissected and controlled with 2 proximal clips and 1 distal. The cystic duct/gallbladder junction in turn was identified, dissected circumferentially and a clip was placed. A
ductotomy was made and a cholangiocatheter on an Winslow clamp was inserted into the cystic duct. A C-arm was draped and brought into the field. An intra-operative cholangiogram was performed and was noted to have:
No filling defects in the biliary tree
No significant biliary dilation
Brisk flow of contrast into the duodenum
Normal biliary anatomy
The catheter was then removed and the cystic duct was controlled with a clip followed by a 0 PDS Endoloop. After ensuring both the artery and duct were divided, the gallbladder was freed from the liver using electrocautery. This was fairly
challenging as the gallbladder wall was fairly thickened and densely adherent to the underlying liver bed. Part of the gallbladder wall was left behind in the liver bed, this was fulgurated at the end of the procedure. There was some spillage of
bile, but no spillage of stones. The gallbladder bed was inspected and excellent hemostasis was obtained. The gallbladder was extracted through the 12 mm trocar site using an endocatch bag. The abdomen was again irrigated and excellent hemostasis
was assured. The 12 mm trocar site, which had to be enlarged to remove the specimen was closed with a running 0 PDS suture. All remaining trocars were then removed and the pneumoperitoneum was evacuated. All trocar sites were closed at the skin
level using 4-0 Monocryl followed by Dermabond. Overall, the patient tolerated the procedure well and was taken to the Recovery Room postoperatively in stable condition.
I was the attending physician and performed the procedure with assistance from the SLOT SERVICE SPECIALIST above. I was present for all portions of the case, excluding skin closure.
Stephen Newberry MD
[2024-02-14] MEDS: LYRICA 75 MG PO (17:05)
[2024-02-14] MEDS: TOPROL XL 25 MG PO (17:05)
[2024-02-15] MEDS: ZOSYN 50 IV ×2 (00:05→05:39)
[2024-02-15] MEDS: DILAUDID 0.5 MG IV (02:09)
[2024-02-15 03:00] VITALS: BP 124/82
[2024-02-15 05:33] LABS: % Basophils 0.1 % (0-2); % Immature Granulocytes 0.8 % (0-0.5); % Lymphocytes 5.3 % (20.5-51.1); % Monocytes 5.6 % (1.7-9.3); % Neutrophils 88.2 % (42.2-75.2); Absolute Immature Granulocytes 0.1 10^3/uL (0-0.05); Absolute Lymphocytes 0.6 10^3/uL (1.2-3.4); Absolute Monocytes 0.7 10^3/uL (0.1-0.6); Absolute Neutrophils 10.2 10^3/uL (1.4-6.5); Hematocrit 36.1 % (39.0-52.0); Hemoglobin 12.7 g/dL (13.0-18.0); Mean Corp Hgb Conc. 35.2 g/dL (33.0-37.0); Mean Corpuscular Hgb 34.8 pg (27.0-31.0); Mean Corpuscular Volume 98.9 fL (80.0-94.0); Mean Platelet Volume 10.6 fL (7.4-10.4); Nucleated Red Blood Cells % 0 % (-); Platelet Count 169 10^3/uL (130-400); Red Blood Cell Count 3.65 10^6/uL (4.70-6.10); Red Cell Dist. Width 13.1 % (11.5-14.5); White Blood Cell Count 11.6 10^3/uL (4.8-10.8)
[2024-02-15 05:53] LABS: ALT (SGPT) 74 U/L (0-50); AST (SGOT) 46 U/L (17-59); Albumin 3.2 g/dl (3.5-5.0); Alkaline Phosphatase 119 U/L (38-126); Blood Urea Nitrogen 12 mg/dl (9-20); Calcium 8.1 mg/dl (8.4-10.2); Carbon Dioxide 29 mmol/L (22-30); Chloride 99 mmol/L (98-107); Estimated Creatinine Clearance 95 ml/min; Glucose 108 mg/dl (70-99); Potassium 4.1 mmol/L (3.5-5.1); Sodium 137 mmol/L (135-145); Total Bilirubin 2.1 mg/dl (0.2-1.3); Total Protein 5.2 g/dl (6.3-8.2); eGFR > 60.00
[2024-02-15 07:05] VITALS: BP 132/78
[2024-02-15] MEDS: ZOVIRAX 400 MG PO (07:57)
[2024-02-15] MEDS: PROTONIX 20 MG PO (07:57)
[2024-02-15] MEDS: WELLBUTRIN XL (24 hour extended release) 300 MG PO (07:57)
[2024-02-15] MEDS: LEXAPRO 10 MG PO (07:57)
--- NOTE | 2024-02-15 09:31 | W.PN.GS2 ---
Today's Communication / Plan
-
Dispo planning
Assessment / Plan
-
This is a 63-year-old male postoperative day 1 from a laparoscopic cholecystectomy. Doing well, expected postoperative course.
DC home today if he is able to tolerate his diet.
Time Spent
Total Time Spent with Patient (in minutes): 20
Subjective Data
-
Date of Service: February 15, 2024
Interval Events:
No acute events overnight. Slept well. Pain Controlled. Denies Nausea/Vomiting, +bowel function. Tolerating diet.
Objective Data
-
Intake and Output
02/14/24 02/15/24 02/16/24
06:59 06:59 06:59
Intake Total 2029 450 / 450
Output Total 1000 / 1000
Balance 2029 -550 / -550
Intake:
Oral fluids 1130 / 1130 400 / 400
IV fluids (Total) 800 / 800
IV piggybacks 100 / 100 50 / 50
Output:
Urine, Voided 1000 / 1000
Other:
Number of approximated MODERATE 3 1
amounts of urine
Vital Signs
Temp Pulse Resp BP Pulse Ox
97.5 F 58 15 132/78 99
02/15/24 07:05 02/15/24 07:05 02/15/24 07:05 02/15/24 07:05 02/15/24 07:05
Lab Results
02/15/24 04:16
02/15/24 04:16
Calcium 8.1 mg/dl (8.4-10.2) L 02/15/24 04:16
Magnesium 1.6 mg/dl (1.6-2.3) 02/14/24 04:39
Total Bilirubin 2.1 mg/dl (0.2-1.3) H 02/15/24 04:16
Direct Bilirubin 0.2 mg/dl (0.0-0.4) 02/12/24 12:03
AST 46 U/L (17-59) 02/15/24 04:16
ALT 74 U/L (0-50) H 02/15/24 04:16
Alkaline Phosphatase 119 U/L (38-126) 02/15/24 04:16
Total Protein 5.2 g/dl (6.3-8.2) L 02/15/24 04:16
Albumin 3.2 g/dl (3.5-5.0) L 02/15/24 04:16
Physical Exam
-
GENERAL/NEURO: Awake, Alert, no distress
CHEST: Unlabored breathing on RA
ABDOMEN: Soft, Non-Tender, Non-Distended, incisions clean dry and intact.
--- NOTE | 2024-02-15 10:39 | CM ---
Pt for discharge today
Met with pt at bedside
Has ride home -
Plan - home no needs
--- NOTE | 2024-02-15 10:48 | W.PN.HOSP.TC ---
Today's Communication/Plan
-
Monitor vitals
see plan
Discharge today
Patient will follow-up with surgery outpatient
Time of discharge 36 minutes
Assessment / Plan
Assessment / Plan
CTA Chest/Abdomen Pelvis 02/12/24
IMPRESSION: New findings suggesting acute cholecystitis. Confirmation with ultrasound is recommended. Associated stable gallstone.
1 mm nonobstructing left renal stone. Stable
Multiple compression fractures. Stable
Stable changes about the anterior right sixth rib seen by recent PET imaging. Suspected chronic fractures per PET report.
Abdomen US 02/12/24:
IMPRESSION: Findings consistent with acute cholecystitis. New.
Clinical and laboratory correlation recommended. This does decrease in size.
Hepatic fatty infiltration. New.
Incomplete visualization of pancreas due to overlying bowel gas.
Nonobstructing left renal stone. New.
Acute cholecystitis
Surgery following, status post laparoscopic cholecystectomy with cholangiogram
Now able to tolerate diet
-Zosyn for now, p.o. antibiotics on discharge by surgery
pain control
Multiple myeloma
-Continue prophylactic acyclovir
Gilbert's syndrome
Anxiety/depression
-Continue bupropion, Lexapro
GERD
-Continue Protonix
Hypertension
-Continue metoprolol
Hyperlipidemia
Restart statin on discharge
Spinal Stenosis
-continue pregabalin
Full code
DVT prophylaxis-SCDs
General: No Apparent Distress
HEENT: PERRLA
Respiratory: Clear to Auscultation; Negative Wheezes
Cardiac: S1/S2
GI: laparoscopic incision; mild tenderness
Musculoskeletal: No Edema
Neuro: AO x 3
Psych: Calm
Anticipated Discharge: Today
Subjective/Interval History
-
Date of Service: February 15, 2024
Some mild pain
Objective Data
-
Labs:
Laboratory Results
02/15/24
04:16
WBC 11.6 H
Hgb 12.7 L
Hct 36.1 L
Plt Count 169
Sodium 137
Potassium 4.1
Chloride 99
Carbon Dioxide 29
BUN 12
Creatinine 0.8
Glucose 108 H
Calcium 8.1 L
Total Bilirubin 2.1 H
AST 46
ALT 74 H
Alkaline Phosphatase 119
Vital Signs:
Vital Signs
Temp Pulse Resp BP Pulse Ox
97.5 F 58 15 132/78 99
02/15/24 07:05 02/15/24 07:05 02/15/24 07:05 02/15/24 07:05 02/15/24 07:05
I&O
02/14/24 02/15/24 02/16/24
06:59 06:59 06:59
Intake Total 2029 450 / 450
Output Total 1000 / 1000
Balance 2029 -550 / -550
--- NOTE | 2024-02-15 10:49 | W.DCSUMMARY ---
Discharge Summary
Discharge Data
Date of Admission: 02/12/24
Date of Discharge: 02/15/24
-
Pending Results: No
Hospital Course
63-year-old male with past medical history of multiple myeloma, Gilbert syndrome, anxiety/depression, GERD, hypertension, hyperlipidemia, spinal stenosis came to the hospital with acute cholecystitis. Patient was seen by surgery and was taken for
laparoscopic cholecystectomy with cholangiogram. It did not appear the patient had any CBD dilation. Initially patient was put on IV antibiotics were later transitioned to p.o. antibiotics prior to discharge. He was also able to tolerate regular
diet prior to discharge. Once his symptoms continue to improve, he was then discharged home with instructions to follow-up with all the physicians outpatient.
Discharge Plan
-
Patient Disposition: Home (Routine Discharge)
Discharge Diagnosis/Procedures: Acute cholecystitis status post laparoscopic cholecystectomy
Nonobstructing left renal stone
Diet: As tolerated
Activity: No strenuous activity
Bathing Restrictions: OK to Shower
Activity Restrictions/Additional Instructions:
Instructions following Laparoscopic cholecystectomy
Please call [phone] if you have any questions or concerns after your surgery.
Wound Care:
Your incisions are covered with skin glue which will come off on it�s own in 5-10 days.
It is ok to shower the day after your surgery. Do not scrub the incisions, let soap and water wash over them and pat dry.
� Bruising around your incisions is normal.
� Using ice packs will help minimize this swelling.
� No swimming or soaking incisions for 1 week.
� Your stitches will dissolve and do not need to be removed.
Urinary retention:
If you are unable to urinate 6-8 hours after your surgery, please call [phone] to discuss further management.
Activity:
No heavy lifting more than 15 pounds for the next 3 weeks, then you may gradually lift heavier objects as tolerated by discomfort. Otherwise activity as tolerated by your comfort level.
Pain Management:
Use Tylenol, ibuprofen and ice packs to treat your pain.
� You may take 650 milligrams of Tylenol (Max 3 grams per day) every 6 hours, and 600 mg of ibuprofen also every 6 hours. (you can alternate them every 3 hours)
� You may use an ice pack to your incision as needed.
� If you still have pain not controlled by these measures, take your prescription pain medication as prescribed.
Medications:
You may resume your home medications.
Bowel Medications:
Prescription pain medication can make you constipated. If you take this medication, also take colace 100 mg twice daily (this is over the counter). If this is not sufficient, you may take Miralax (polyethylene glycol) to help move your bowels.
Diet:
After your procedure, there are no dietary restrictions. You may notice loose stools for up to 4 weeks after surgery with fatty meals, if this is the case you may have to adjust your diet as needed.
Driving restrictions:
No driving if you are taking prescription pain medication or if you think your normal reaction time and attentiveness has been slowed by your surgery.
Things to Look out for:
Worsening Abdominal pain, redness or drainage from incision
Call Doctor for:
Please call if you notice worsening redness or drainage from incision(s) lasting longer than 5 days after your surgery, any foul-smelling drainage from the incision, pain not controlled by pain medications, persistent nausea and vomiting, or for any
fevers greater than 101.3 F. The number for questions/concerns is [phone]
Follow-up:
Follow-up appointment will be scheduled with your surgeon in 3-4 weeks. Please call prior to your appointment if you have any questions or concerns. [phone]
Referrals:
Stephen Newberry MD [Active] - in two to four weeks
Osmin Elam CRNP [Family Provider] - in less than 1 week
Prescriptions:
New
acetaminophen [acetaminophen] 325 mg tablet
650 mg PO Q6HPRN PRN (Reason: mild pain) Qty: 14 0RF
tramadol 50 mg tablet
25 mg PO Q6HPRN PRN (Reason: severe pain/breakthrough pain) Qty: 8 0RF
amoxicillin-pot clavulanate 875-125 mg tablet
1 tab PO Q12 Qty: 8 0RF
Continued
bupropion HCl 300 MG tablet extended release 24 hr
300 mg PO DAILY
atorvastatin 40 MG tablet
40 mg PO QPM Qty: 30 0RF
acyclovir 400 mg tablet
400 mg PO BID
pantoprazole 20 mg tablet,delayed release (DR/EC)
20 mg PO DAILY
escitalopram oxalate 10 mg tablet
10 mg PO DAILY
pregabalin 75 mg capsule
75 mg PO QPM
metoprolol succinate 25 MG tablet extended release 24 hr
25 mg PO QPM
aspirin 81 MG tablet,chewable
81 mg PO DAILY
Discharge Orders:
Discharge Patient (As Directed); Ordered 02/15/24
Ordered By: Stephen Newberry
Discharge Date and Time
Discharge Date/Time: 02/15/24 12:36
Print Language: THAI
[2024-02-15 11:49] VITALS: BP 149/97
== END 2024-02-15 12:36 | disposition home or self-care (01) | DRG 418 ==
LOC: 2 SOUTH 20:22
PROVIDERS: Student in an Organized Health Care Education/Training Program; Surgery; ADMITTING PHYSICIAN Hospitalist; ATTENDING PHYSICIAN Internal Medicine; EMERGENCY PHYSICIAN Emergency Medicine; FAMILY PHYSICIAN Registered Nurse; OTHER PHYSICIAN Registered Nurse
PROC: 0FT44ZZ Resection of Gallbladder, Percutaneous Endoscopic Approach (ICD-10-PCS; 2024-02-14)
PROC: BF111ZZ Fluoroscopy of Biliary and Pancreatic Ducts using Low Osmolar Contrast (ICD-10-PCS; 2024-02-14)
DX: K80.12 Calculus of gallbladder with acute and chronic cholecystitis without obstruction (principal); C90.00 Multiple myeloma not having achieved remission; E80.4 Gilbert syndrome; F41.9 Anxiety disorder, unspecified; F32.A Depression, unspecified; K21.9 Gastro-esophageal reflux disease without esophagitis; I10 Essential (primary) hypertension; E78.00 Pure hypercholesterolemia, unspecified; M48.00 Spinal stenosis, site unspecified; E66.9 Obesity, unspecified; Z68.28 Body mass index [BMI] 28.0-28.9, adult; Z79.82 Long term (current) use of aspirin; F17.200 Nicotine dependence, unspecified, uncomplicated; Z92.3 Personal history of irradiation
CPT/HCPCS: 88304; 71275; 74174; 74300; 76000; 76700; 80053; 81003; 82248; 83690; 83735; 84484; 85025; 93005; 96365; 96375; 96376; 99285; A4300; Q9967

== ENCOUNTER → 2024-02-28 11:13 | Outpatient (REF) | payer OTHER, SELFPAY ==
[2024-02-28 17:52] LABS: ALT (SGPT) 35 U/L (0-50); AST (SGOT) 32 U/L (17-59); Albumin 4.1 g/dl (3.5-5.0); Alkaline Phosphatase 83 U/L (38-126); Blood Urea Nitrogen 20 mg/dl (9-20); Calcium 9.2 mg/dl (8.4-10.2); Carbon Dioxide 28 mmol/L (22-30); Chloride 103 mmol/L (98-107); Glucose 85 mg/dl (70-99); Potassium 4.4 mmol/L (3.5-5.1); Sodium 140 mmol/L (135-145); Total Bilirubin 1.4 mg/dl (0.2-1.3); Total Protein 6.2 g/dl (6.3-8.2); eGFR > 60.00
[2024-02-28 18:03] LABS: % Basophils 0.7 % (0-2); % Eosinophils 4.4 % (0-6); % Immature Granulocytes 0.3 % (0-0.5); % Lymphocytes 35.1 % (20.5-51.1); % Monocytes 10.7 % (1.7-9.3); % Neutrophils 48.8 % (42.2-75.2); Absolute Basophils 0.1 10^3/uL (0-0.2); Absolute Eosinophils 0.3 10^3/uL (0-0.7); Absolute Lymphocytes 2.5 10^3/uL (1.2-3.4); Absolute Monocytes 0.8 10^3/uL (0.1-0.6); Absolute Neutrophils 3.4 10^3/uL (1.4-6.5); Hematocrit 44.2 % (39.0-52.0); Hemoglobin 14.6 g/dL (13.0-18.0); Mean Corpuscular Volume 102.8 fL (80.0-94.0); Mean Platelet Volume 10.3 fL (7.4-10.4); Nucleated Red Blood Cells % 0 % (-); Platelet Count 294 10^3/uL (130-400); Red Cell Dist. Width 13.6 % (11.5-14.5)
[2024-03-01 21:54] LABS: Beta-2-Microglobulin 1.9 mg/L (<=3.0)
== END ==
LOC: HWLAB 11:13
PROVIDERS: ATTENDING PHYSICIAN Internal Medicine Hematology & Oncology; FAMILY PHYSICIAN Registered Nurse
DX: C90.00 Multiple myeloma not having achieved remission (principal); E80.4 Gilbert syndrome
CPT/HCPCS: 36415; 80053; 82232; 82784; 83521; 84155; 84165; 85025; 86334

== ENCOUNTER → 2024-03-24 13:45 | Outpatient (REF) | payer OTHER, SELFPAY ==
[2024-03-24 15:27] LABS: % Basophils 1.4 % (0-2); % Eosinophils 5.8 % (0-6); % Immature Granulocytes 0.2 % (0-0.5); % Lymphocytes 35.5 % (20.5-51.1); % Monocytes 12.3 % (1.7-9.3); % Neutrophils 44.8 % (42.2-75.2); Absolute Basophils 0.1 10^3/uL (0-0.2); Absolute Eosinophils 0.3 10^3/uL (0-0.7); Absolute Lymphocytes 1.8 10^3/uL (1.2-3.4); Absolute Monocytes 0.6 10^3/uL (0.1-0.6); Absolute Neutrophils 2.3 10^3/uL (1.4-6.5); Hematocrit 41.6 % (39.0-52.0); Hemoglobin 14.2 g/dL (13.0-18.0); Mean Corp Hgb Conc. 34.1 g/dL (33.0-37.0); Mean Corpuscular Hgb 34.2 pg (27.0-31.0); Mean Corpuscular Volume 100.2 fL (80.0-94.0); Mean Platelet Volume 10.3 fL (7.4-10.4); Nucleated Red Blood Cells % 0 % (-); Platelet Count 196 10^3/uL (130-400); Red Blood Cell Count 4.15 10^6/uL (4.70-6.10); White Blood Cell Count 5.1 10^3/uL (4.8-10.8)
[2024-03-24 15:46] LABS: ALT (SGPT) 23 U/L (0-50); AST (SGOT) 23 U/L (17-59); Albumin 3.8 g/dl (3.5-5.0); Alkaline Phosphatase 76 U/L (38-126); Blood Urea Nitrogen 13 mg/dl (9-20); Calcium 8.5 mg/dl (8.4-10.2); Carbon Dioxide 29 mmol/L (22-30); Chloride 102 mmol/L (98-107); Glucose 76 mg/dl (70-99); Potassium 3.5 mmol/L (3.5-5.1); Sodium 135 mmol/L (135-145); Total Bilirubin 1.7 mg/dl (0.2-1.3); Total Protein 5.7 g/dl (6.3-8.2); eGFR > 60.00
== END ==
LOC: HWLAB 13:45
PROVIDERS: ATTENDING PHYSICIAN Internal Medicine Hematology & Oncology; FAMILY PHYSICIAN Registered Nurse
DX: C90.00 Multiple myeloma not having achieved remission (principal); E80.4 Gilbert syndrome
CPT/HCPCS: 36415; 80053; 82232; 82784; 83521; 84155; 84165; 85025; 86334

== ENCOUNTER → 2024-04-28 12:45 | Outpatient (REF) | payer OTHER, SELFPAY ==
[2024-04-28 16:28] LABS: % Eosinophils 5.7 % (0-6); % Immature Granulocytes 0.3 % (0-0.5); % Lymphocytes 32.6 % (20.5-51.1); % Monocytes 11.7 % (1.7-9.3); % Neutrophils 48.7 % (42.2-75.2); Absolute Basophils 0.1 10^3/uL (0-0.2); Absolute Eosinophils 0.4 10^3/uL (0-0.7); Absolute Lymphocytes 2.2 10^3/uL (1.2-3.4); Absolute Monocytes 0.8 10^3/uL (0.1-0.6); Absolute Neutrophils 3.3 10^3/uL (1.4-6.5); Hematocrit 40.6 % (39.0-52.0); Hemoglobin 14.1 g/dL (13.0-18.0); Mean Corp Hgb Conc. 34.7 g/dL (33.0-37.0); Mean Corpuscular Hgb 34.1 pg (27.0-31.0); Mean Corpuscular Volume 98.3 fL (80.0-94.0); Mean Platelet Volume 10.5 fL (7.4-10.4); Nucleated Red Blood Cells % 0 % (-); Platelet Count 195 10^3/uL (130-400); Red Blood Cell Count 4.13 10^6/uL (4.70-6.10); Red Cell Dist. Width 13.9 % (11.5-14.5); White Blood Cell Count 6.7 10^3/uL (4.8-10.8)
[2024-04-28 16:36] LABS: ALT (SGPT) 20 U/L (0-50); AST (SGOT) 24 U/L (17-59); Albumin 4.2 g/dl (3.5-5.0); Alkaline Phosphatase 70 U/L (38-126); Blood Urea Nitrogen 17 mg/dl (9-20); Calcium 8.5 mg/dl (8.4-10.2); Carbon Dioxide 27 mmol/L (22-30); Chloride 103 mmol/L (98-107); Glucose 139 mg/dl (70-99); Potassium 3.6 mmol/L (3.5-5.1); Sodium 140 mmol/L (135-145); Total Bilirubin 2.4 mg/dl (0.2-1.3); Total Protein 6.4 g/dl (6.3-8.2); eGFR > 60.00
== END ==
LOC: HWLAB 12:45
PROVIDERS: ATTENDING PHYSICIAN Internal Medicine Hematology & Oncology; FAMILY PHYSICIAN Registered Nurse
DX: C90.00 Multiple myeloma not having achieved remission (principal); E80.4 Gilbert syndrome
CPT/HCPCS: 36415; 80053; 82232; 82784; 83521; 84155; 84165; 85025; 86334

== ENCOUNTER → 2024-05-08 11:38 | Outpatient (REF) | payer OTHER, SELFPAY ==
[2024-05-08 12:07] LABS: Hematocrit 44.7 % (39.0-52.0); Hemoglobin 15.3 g/dL (13.0-18.0); Mean Corp Hgb Conc. 34.2 g/dL (33.0-37.0); Mean Corpuscular Hgb 33.8 pg (27.0-31.0); Mean Corpuscular Volume 98.9 fL (80.0-94.0); Mean Platelet Volume 9.7 fL (7.4-10.4); Platelet Count 259 10^3/uL (130-400); Red Blood Cell Count 4.52 10^6/uL (4.70-6.10); Red Cell Dist. Width 14.1 % (11.5-14.5); White Blood Cell Count 6.7 10^3/uL (4.8-10.8)
[2024-05-08 12:38] LABS: % Basophils 1.8 % (0-2); % Eosinophils 5.7 % (0-6); % Immature Granulocytes 0.3 % (0-0.5); % Lymphocytes 28.9 % (20.5-51.1); % Monocytes 8.5 % (1.7-9.3); % Neutrophils 54.8 % (42.2-75.2); Absolute Basophils 0.1 10^3/uL (0-0.2); Absolute Eosinophils 0.4 10^3/uL (0-0.7); Absolute Lymphocytes 1.9 10^3/uL (1.2-3.4); Absolute Monocytes 0.6 10^3/uL (0.1-0.6); Absolute Neutrophils 3.7 10^3/uL (1.4-6.5); Nucleated Red Blood Cells % 0 % (-)
[2024-05-08 12:57] LABS: ALT (SGPT) 23 U/L (0-50); AST (SGOT) 32 U/L (17-59); Albumin 4.1 g/dl (3.5-5.0); Alkaline Phosphatase 101 U/L (38-126); Blood Urea Nitrogen 17 mg/dl (9-20); Calcium 9.2 mg/dl (8.4-10.2); Carbon Dioxide 28 mmol/L (22-30); Chloride 103 mmol/L (98-107); Glucose 97 mg/dl (70-99); LDH 152 U/L (120-246); Potassium 4.1 mmol/L (3.5-5.1); Sodium 133 mmol/L (135-145); Total Bilirubin 1.1 mg/dl (0.2-1.3); Total Protein 6.1 g/dl (6.3-8.2); eGFR > 60.00
[2024-05-08 23:25] LABS: Uric Acid 6.7 mg/dl (3.5-8.5)
[2024-05-09 19:50] LABS: Beta-2-Microglobulin 2.3 mg/L (<=3.0)
[2024-05-10 22:44] LABS: Alpha 1 Globulin 0.37 g/dL (0.19-0.46); Alpha 2 Globulin 0.73 g/dL (0.48-1.05); Free Kappa Light Chains,Quant 21.16 mg/L (3.30-19.40); Free Lambda Light Chains,Quant 6.48 mg/L (5.71-26.30); IgA 44 mg/dL (68-408); IgG 578 mg/dL (768-1632); IgM 34 mg/dL (35-263); Immunofixation Electrophoresis IFE Done; Kappa/Lambda Fr Light Ratio 3.27 (0.26-1.65); Monoclonal Protein 0.31 g/dL (<=0.00); Total Protein-Electrophoresis 6.1 g/dL (6.3-8.2)
== END ==
LOC: REG 11:38
PROVIDERS: ATTENDING PHYSICIAN Internal Medicine Hematology & Oncology
DX: C90.00 Multiple myeloma not having achieved remission (principal); E80.4 Gilbert syndrome
CPT/HCPCS: 36415; 80053; 82232; 82784; 83521; 83615; 84155; 84165; 84550; 85025; 86334

== ENCOUNTER → 2024-05-15 08:49 | Outpatient (REF) | payer OTHER, SELFPAY ==
[2024-05-15 09:33] LABS: % Eosinophils 2.3 % (0-6); % Immature Granulocytes 0.2 % (0-0.5); % Lymphocytes 38.5 % (20.5-51.1); % Monocytes 7.7 % (1.7-9.3); % Neutrophils 50.3 % (42.2-75.2); Absolute Basophils 0.1 10^3/uL (0-0.2); Absolute Eosinophils 0.1 10^3/uL (0-0.7); Absolute Lymphocytes 2.3 10^3/uL (1.2-3.4); Absolute Monocytes 0.5 10^3/uL (0.1-0.6); Hematocrit 39.6 % (39.0-52.0); Hemoglobin 14.1 g/dL (13.0-18.0); Mean Corp Hgb Conc. 35.6 g/dL (33.0-37.0); Mean Corpuscular Hgb 34.4 pg (27.0-31.0); Mean Corpuscular Volume 96.6 fL (80.0-94.0); Nucleated Red Blood Cells % 0 % (-); Platelet Count 231 10^3/uL (130-400); Red Cell Dist. Width 13.4 % (11.5-14.5)
[2024-05-15 10:31] LABS: ALT (SGPT) 22 U/L (0-50); AST (SGOT) 21 U/L (17-59); Albumin 3.5 g/dl (3.5-5.0); Alkaline Phosphatase 71 U/L (38-126); Blood Urea Nitrogen 16 mg/dl (9-20); Calcium 8.8 mg/dl (8.4-10.2); Carbon Dioxide 18 mmol/L (22-30); Chloride 103 mmol/L (98-107); Glucose 89 mg/dl (70-99); Potassium 3.8 mmol/L (3.5-5.1); Sodium 135 mmol/L (135-145); Total Bilirubin 1.8 mg/dl (0.2-1.3); Total Protein 5.5 g/dl (6.3-8.2); eGFR > 60.00
[2024-05-17 11:45] LABS: Alpha 1 Globulin 0.24 g/dL (0.19-0.46); Alpha 2 Globulin 0.59 g/dL (0.48-1.05); Free Kappa Light Chains,Quant 21.59 mg/L (3.30-19.40); Free Lambda Light Chains,Quant 3.82 mg/L (5.71-26.30); IgA 38 mg/dL (68-408); IgG 568 mg/dL (768-1632); IgM 33 mg/dL (35-263); Immunofixation Electrophoresis IFE Done; Kappa/Lambda Fr Light Ratio 5.65 (0.26-1.65); Monoclonal Protein 0.32 g/dL (<=0.00); Total Protein-Electrophoresis 5.3 g/dL (6.3-8.2)
== END ==
LOC: REG 08:49
PROVIDERS: ATTENDING PHYSICIAN Internal Medicine Hematology & Oncology; FAMILY PHYSICIAN Registered Nurse
DX: C90.00 Multiple myeloma not having achieved remission (principal); E80.4 Gilbert syndrome
CPT/HCPCS: 36415; 80053; 82232; 82784; 83521; 84155; 84165; 85025; 86334

== ENCOUNTER → 2024-05-17 08:15 | Outpatient (REF) | payer OTHER, SELFPAY | LOC: RCS 08:15 | PROVIDERS: ATTENDING PHYSICIAN Internal Medicine Cardiovascular Disease; FAMILY PHYSICIAN Registered Nurse | DX: I10 Essential (primary) hypertension (principal); I71.21 Aneurysm of the ascending aorta, without rupture; I34.0 Nonrheumatic mitral (valve) insufficiency | CPT/HCPCS: 93306; 93356 ==

== ENCOUNTER → 2024-05-22 10:34 | Outpatient (REF) | payer OTHER, SELFPAY ==
[2024-05-22 11:34] LABS: % Basophils 0.2 % (0-2); % Eosinophils 5.1 % (0-6); % Immature Granulocytes 0.3 % (0-0.5); % Lymphocytes 14.1 % (20.5-51.1); % Neutrophils 73.3 % (42.2-75.2); Absolute Eosinophils 0.3 10^3/uL (0-0.7); Absolute Lymphocytes 0.9 10^3/uL (1.2-3.4); Absolute Monocytes 0.4 10^3/uL (0.1-0.6); Absolute Neutrophils 4.4 10^3/uL (1.4-6.5); Hematocrit 42.6 % (39.0-52.0); Hemoglobin 14.4 g/dL (13.0-18.0); Mean Corp Hgb Conc. 33.8 g/dL (33.0-37.0); Mean Corpuscular Hgb 33.9 pg (27.0-31.0); Mean Corpuscular Volume 100.2 fL (80.0-94.0); Mean Platelet Volume 11.1 fL (7.4-10.4); Nucleated Red Blood Cells % 0 % (-); Platelet Count 100 10^3/uL (130-400); Red Blood Cell Count 4.25 10^6/uL (4.70-6.10); Red Cell Dist. Width 14.2 % (11.5-14.5)
[2024-05-22 12:13] LABS: ALT (SGPT) 19 U/L (0-50); AST (SGOT) 19 U/L (17-59); Albumin 3.8 g/dl (3.5-5.0); Alkaline Phosphatase 73 U/L (38-126); Blood Urea Nitrogen 17 mg/dl (9-20); Carbon Dioxide 28 mmol/L (22-30); Chloride 102 mmol/L (98-107); Glucose 107 mg/dl (70-99); Potassium 4.3 mmol/L (3.5-5.1); Sodium 137 mmol/L (135-145); Total Bilirubin 2.9 mg/dl (0.2-1.3); Total Protein 5.7 g/dl (6.3-8.2); eGFR > 60.00
== END ==
LOC: REG 10:34
PROVIDERS: ATTENDING PHYSICIAN Internal Medicine Hematology & Oncology; FAMILY PHYSICIAN Registered Nurse
DX: C90.00 Multiple myeloma not having achieved remission (principal); E80.4 Gilbert syndrome
CPT/HCPCS: 36415; 80053; 85025

== ENCOUNTER → 2024-06-05 10:34 | Outpatient (REF) | payer OTHER, SELFPAY ==
[2024-06-05 11:24] LABS: Hematocrit 41.8 % (39.0-52.0); Hemoglobin 14.6 g/dL (13.0-18.0); Mean Corp Hgb Conc. 34.9 g/dL (33.0-37.0); Mean Corpuscular Hgb 34.5 pg (27.0-31.0); Mean Corpuscular Volume 98.8 fL (80.0-94.0); Mean Platelet Volume 9.6 fL (7.4-10.4); Platelet Count 210 10^3/uL (130-400); Red Blood Cell Count 4.23 10^6/uL (4.70-6.10); Red Cell Dist. Width 13.7 % (11.5-14.5); White Blood Cell Count 2.8 10^3/uL (4.8-10.8)
[2024-06-05 12:04] LABS: Absolute Neutrophils -Man Diff 1.2 10^3/uL (1.4-6.5); Band Neutrophils 0 % (0-3); Eosinophils 6 % (0-6); Lymphocytes 32 % (20-51); Monocytes 17 % (2-9); Platelets Checked Yes; Segmented Neutrophils 45 % (42-75)
[2024-06-05 12:05] LABS: Normal RBC Morphology Yes; Total Cells Counted 100
[2024-06-05 12:17] LABS: ALT (SGPT) 21 U/L (0-50); AST (SGOT) 20 U/L (17-59); Albumin 4.1 g/dl (3.5-5.0); Alkaline Phosphatase 86 U/L (38-126); Blood Urea Nitrogen 17 mg/dl (9-20); Carbon Dioxide 26 mmol/L (22-30); Chloride 102 mmol/L (98-107); Glucose 91 mg/dl (70-99); Sodium 137 mmol/L (135-145); Total Bilirubin 2.9 mg/dl (0.2-1.3); eGFR > 60.00
== END ==
LOC: REG 10:34
PROVIDERS: ATTENDING PHYSICIAN Internal Medicine Hematology & Oncology; FAMILY PHYSICIAN Registered Nurse
DX: C90.00 Multiple myeloma not having achieved remission (principal); E80.4 Gilbert syndrome
CPT/HCPCS: 36415; 80053; 85025

== ENCOUNTER → 2024-06-12 08:51 | Outpatient (REF) | payer OTHER, SELFPAY ==
[2024-06-12 09:33] LABS: Hematocrit 40.2 % (39.0-52.0); Hemoglobin 14.1 g/dL (13.0-18.0); Mean Corp Hgb Conc. 35.1 g/dL (33.0-37.0); Mean Corpuscular Hgb 34.3 pg (27.0-31.0); Mean Corpuscular Volume 97.8 fL (80.0-94.0); Platelet Count 111 10^3/uL (130-400); Red Blood Cell Count 4.11 10^6/uL (4.70-6.10); Red Cell Dist. Width 13.7 % (11.5-14.5)
[2024-06-12 10:21] LABS: ALT (SGPT) 22 U/L (0-50); AST (SGOT) 19 U/L (17-59); Albumin 3.9 g/dl (3.5-5.0); Alkaline Phosphatase 70 U/L (38-126); Blood Urea Nitrogen 19 mg/dl (9-20); Calcium 9.1 mg/dl (8.4-10.2); Carbon Dioxide 24 mmol/L (22-30); Chloride 103 mmol/L (98-107); Glucose 97 mg/dl (70-99); Sodium 135 mmol/L (135-145); Total Bilirubin 3.1 mg/dl (0.2-1.3); Total Protein 5.7 g/dl (6.3-8.2); eGFR > 60.00
[2024-06-12 11:07] LABS: Atypical Lymphocytes 4 %; Band Neutrophils 0 % (0-3); Eosinophils 5 % (0-6); Lymphocytes 38 % (20-51); Monocytes 18 % (2-9); Normal RBC Morphology Yes; Platelets Checked Yes; Segmented Neutrophils 35 % (42-75); Total Cells Counted 100
[2024-06-13 09:54] LABS: Beta-2-Microglobulin 2.4 mg/L (<=3.0)
[2024-06-15 02:57] LABS: Albumin 3.56 g/dL (3.75-5.01); Alpha 2 Globulin 0.58 g/dL (0.48-1.05); IgA 29 mg/dL (68-408); IgG 525 mg/dL (768-1632); IgM 22 mg/dL (35-263); Immunofixation Electrophoresis IFE Done; Kappa/Lambda Fr Light Ratio 2.36 (0.26-1.65); Monoclonal Protein 0.24 g/dL (<=0.00); Total Protein-Electrophoresis 5.5 g/dL (6.3-8.2)
== END ==
LOC: REG 08:51
PROVIDERS: ATTENDING PHYSICIAN Internal Medicine Hematology & Oncology; FAMILY PHYSICIAN Registered Nurse
DX: C90.00 Multiple myeloma not having achieved remission (principal); E80.4 Gilbert syndrome
CPT/HCPCS: 36415; 80053; 82232; 82784; 83521; 84155; 84165; 85025; 86334

== ENCOUNTER → 2024-06-13 08:38 | Outpatient (REF) | payer OTHER, SELFPAY ==
[2024-06-13 09:16] LABS: Hematocrit 38.6 % (39.0-52.0); Hemoglobin 13.7 g/dL (13.0-18.0); Mean Corp Hgb Conc. 35.5 g/dL (33.0-37.0); Mean Corpuscular Hgb 34.6 pg (27.0-31.0); Mean Corpuscular Volume 97.5 fL (80.0-94.0); Mean Platelet Volume 10.4 fL (7.4-10.4); Platelet Count 146 10^3/uL (130-400); Red Blood Cell Count 3.96 10^6/uL (4.70-6.10); Red Cell Dist. Width 13.6 % (11.5-14.5); White Blood Cell Count 3.2 10^3/uL (4.8-10.8)
[2024-06-13 10:23] LABS: Absolute Neutrophils -Man Diff 1.3 10^3/uL (1.4-6.5); Band Neutrophils 6 % (0-3); Lymphocytes 26 % (20-51); Segmented Neutrophils 36 % (42-75)
[2024-06-13 10:24] LABS: Anisocytosis Slight; Atypical Lymphocytes 4 %; Eosinophils 2 % (0-6); Hypochromasia 1+; Monocytes 26 % (2-9); Normal RBC Morphology No; Platelets Checked Yes; Polychromasia 1+
[2024-06-13 10:25] LABS: Ovalocytes FEW; Total Cells Counted 100
== END ==
LOC: OIDL 08:38
PROVIDERS: ATTENDING PHYSICIAN Internal Medicine Hematology & Oncology
DX: C90.00 Multiple myeloma not having achieved remission (principal); E80.4 Gilbert syndrome
CPT/HCPCS: 85025

== ENCOUNTER → 2024-06-19 09:07 | Outpatient (REF) | payer OTHER, SELFPAY ==
[2024-06-19 10:16] LABS: Hematocrit 37.7 % (39.0-52.0); Mean Corp Hgb Conc. 34.5 g/dL (33.0-37.0); Mean Corpuscular Hgb 34.1 pg (27.0-31.0); Mean Platelet Volume 10.7 fL (7.4-10.4); Platelet Count 182 10^3/uL (130-400); Red Blood Cell Count 3.81 10^6/uL (4.70-6.10); White Blood Cell Count 3.7 10^3/uL (4.8-10.8)
[2024-06-19 10:40] LABS: % Basophils 0.8 % (0-2); % Eosinophils 2.4 % (0-6); % Immature Granulocytes 1.6 % (0-0.5); % Lymphocytes 22.5 % (20.5-51.1); % Monocytes 18.2 % (1.7-9.3); % Neutrophils 54.5 % (42.2-75.2); Absolute Eosinophils 0.1 10^3/uL (0-0.7); Absolute Immature Granulocytes 0.1 10^3/uL (0-0.05); Absolute Lymphocytes 0.8 10^3/uL (1.2-3.4); Absolute Monocytes 0.7 10^3/uL (0.1-0.6); Nucleated Red Blood Cells % 0 % (-)
[2024-06-19 14:01] LABS: ALT (SGPT) 14 U/L (0-50); AST (SGOT) 15 U/L (17-59); Albumin 3.3 g/dl (3.5-5.0); Alkaline Phosphatase 60 U/L (38-126); Blood Urea Nitrogen 16 mg/dl (9-20); Calcium 8.5 mg/dl (8.4-10.2); Carbon Dioxide 32 mmol/L (22-30); Chloride 106 mmol/L (98-107); Glucose 74 mg/dl (70-99); Potassium 3.7 mmol/L (3.5-5.1); Sodium 141 mmol/L (135-145); Total Bilirubin 2.1 mg/dl (0.2-1.3); Total Protein 5.2 g/dl (6.3-8.2); eGFR > 60.00
== END ==
LOC: REG 09:07
PROVIDERS: ATTENDING PHYSICIAN Internal Medicine Hematology & Oncology; FAMILY PHYSICIAN Registered Nurse
DX: C90.00 Multiple myeloma not having achieved remission (principal); E80.4 Gilbert syndrome
CPT/HCPCS: 36415; 80053; 85025

== ENCOUNTER → 2024-07-03 10:23 | Outpatient (REF) | payer OTHER, SELFPAY ==
[2024-07-03 11:31] LABS: Hemoglobin 13.4 g/dL (13.0-18.0); Mean Corp Hgb Conc. 34.4 g/dL (33.0-37.0); Mean Corpuscular Hgb 35.4 pg (27.0-31.0); Mean Corpuscular Volume 102.9 fL (80.0-94.0); Mean Platelet Volume 9.8 fL (7.4-10.4); Platelet Count 244 10^3/uL (130-400); Red Blood Cell Count 3.79 10^6/uL (4.70-6.10); Red Cell Dist. Width 15.8 % (11.5-14.5); White Blood Cell Count 3.6 10^3/uL (4.8-10.8)
[2024-07-03 11:47] LABS: ALT (SGPT) 21 U/L (0-50); AST (SGOT) 22 U/L (17-59); Alkaline Phosphatase 70 U/L (38-126); Blood Urea Nitrogen 20 mg/dl (9-20); Calcium 9.1 mg/dl (8.4-10.2); Carbon Dioxide 28 mmol/L (22-30); Chloride 105 mmol/L (98-107); Glucose 81 mg/dl (70-99); Potassium 4.2 mmol/L (3.5-5.1); Sodium 138 mmol/L (135-145); Total Bilirubin 3.1 mg/dl (0.2-1.3); Total Protein 5.9 g/dl (6.3-8.2); eGFR > 60.00
[2024-07-03 12:09] LABS: % Basophils 3.9 % (0-2); % Eosinophils 11.8 % (0-6); % Immature Granulocytes 1.1 % (0-0.5); % Lymphocytes 26.1 % (20.5-51.1); % Monocytes 17.6 % (1.7-9.3); % Neutrophils 39.5 % (42.2-75.2); Absolute Basophils 0.1 10^3/uL (0-0.2); Absolute Eosinophils 0.4 10^3/uL (0-0.7); Absolute Lymphocytes 0.9 10^3/uL (1.2-3.4); Absolute Monocytes 0.6 10^3/uL (0.1-0.6); Absolute Neutrophils 1.4 10^3/uL (1.4-6.5); Nucleated Red Blood Cells % 0 % (-)
== END ==
LOC: REG 10:23
PROVIDERS: ATTENDING PHYSICIAN Internal Medicine Hematology & Oncology; FAMILY PHYSICIAN Registered Nurse
DX: C90.00 Multiple myeloma not having achieved remission (principal); E80.4 Gilbert syndrome
CPT/HCPCS: 36415; 80053; 85025

== ENCOUNTER → 2024-07-10 09:45 | Outpatient (REF) | payer OTHER, SELFPAY ==
[2024-07-10 11:10] LABS: Hematocrit 35.9 % (39.0-52.0); Hemoglobin 12.3 g/dL (13.0-18.0); Mean Corp Hgb Conc. 34.3 g/dL (33.0-37.0); Mean Corpuscular Hgb 34.9 pg (27.0-31.0); Platelet Count 139 10^3/uL (130-400); Red Blood Cell Count 3.52 10^6/uL (4.70-6.10); White Blood Cell Count 3.7 10^3/uL (4.8-10.8)
[2024-07-10 11:33] LABS: Absolute Neutrophils -Man Diff 1.3 10^3/uL (1.4-6.5); Band Neutrophils 2 % (0-3); Eosinophils 5 % (0-6); Lymphocytes 35 % (20-51); Metamyelocytes 2 % (-); Monocytes 22 % (2-9); Platelets Checked Yes; Segmented Neutrophils 34 % (42-75)
[2024-07-10 11:34] LABS: Normal RBC Morphology Yes; Total Cells Counted 100
[2024-07-10 13:22] LABS: ALT (SGPT) 18 U/L (0-50); AST (SGOT) 19 U/L (17-59); Albumin 3.7 g/dl (3.5-5.0); Alkaline Phosphatase 68 U/L (38-126); Blood Urea Nitrogen 22 mg/dl (9-20); Calcium 8.4 mg/dl (8.4-10.2); Carbon Dioxide 26 mmol/L (22-30); Chloride 105 mmol/L (98-107); Glucose 111 mg/dl (70-99); Potassium 4.5 mmol/L (3.5-5.1); Total Bilirubin 2.8 mg/dl (0.2-1.3); eGFR > 60.00
[2024-07-10 14:22] LABS: Sodium 141 mmol/L (135-145); Total Protein 5.5 g/dl (6.3-8.2)
== END ==
LOC: REG 09:45
PROVIDERS: ATTENDING PHYSICIAN Internal Medicine Hematology & Oncology; FAMILY PHYSICIAN Registered Nurse
DX: C90.00 Multiple myeloma not having achieved remission (principal); E80.4 Gilbert syndrome
CPT/HCPCS: 36415; 80053; 85025

== ENCOUNTER → 2024-07-17 10:36 | Outpatient (REF) | payer OTHER, SELFPAY ==
[2024-07-17 11:21] LABS: Hematocrit 37.3 % (39.0-52.0); Hemoglobin 12.7 g/dL (13.0-18.0); Mean Corpuscular Hgb 35.4 pg (27.0-31.0); Mean Corpuscular Volume 103.9 fL (80.0-94.0); Platelet Count 224 10^3/uL (130-400); Red Blood Cell Count 3.59 10^6/uL (4.70-6.10); Red Cell Dist. Width 16.1 % (11.5-14.5)
[2024-07-17 11:51] LABS: ALT (SGPT) 17 U/L (0-50); AST (SGOT) 16 U/L (17-59); Albumin 3.9 g/dl (3.5-5.0); Alkaline Phosphatase 63 U/L (38-126); Blood Urea Nitrogen 19 mg/dl (9-20); Calcium 9.2 mg/dl (8.4-10.2); Carbon Dioxide 27 mmol/L (22-30); Chloride 106 mmol/L (98-107); Glucose 93 mg/dl (70-99); Potassium 4.2 mmol/L (3.5-5.1); Sodium 139 mmol/L (135-145); Total Bilirubin 2.6 mg/dl (0.2-1.3); Total Protein 5.8 g/dl (6.3-8.2); eGFR > 60.00
[2024-07-17 11:55] LABS: Absolute Neutrophils -Man Diff 3.4 10^3/uL (1.4-6.5); Anisocytosis Slight; Band Neutrophils 0 % (0-3); Eosinophils 3 % (0-6); Lymphocytes 23 % (20-51); Monocytes 17 % (2-9); Normal RBC Morphology No; Platelets Checked Yes; Segmented Neutrophils 57 % (42-75); Total Cells Counted 100
[2024-07-18 16:49] LABS: Beta-2-Microglobulin 2.1 mg/L (<=3.0)
[2024-07-19 09:46] LABS: Albumin 3.67 g/dL (3.75-5.01); Alpha 1 Globulin 0.29 g/dL (0.19-0.46); Free Kappa Light Chains,Quant 7.57 mg/L (3.30-19.40); Free Lambda Light Chains,Quant 2.88 mg/L (5.71-26.30); IgA 32 mg/dL (68-408); IgG 416 mg/dL (768-1632); IgM 33 mg/dL (35-263); Immunofixation Electrophoresis IFE Done; Kappa/Lambda Fr Light Ratio 2.63 (0.26-1.65); Monoclonal Protein 0.21 g/dL (<=0.00); Total Protein-Electrophoresis 5.5 g/dL (6.3-8.2)
== END ==
LOC: REG 10:36
PROVIDERS: ATTENDING PHYSICIAN Internal Medicine Hematology & Oncology; FAMILY PHYSICIAN Registered Nurse
DX: C90.00 Multiple myeloma not having achieved remission (principal); E80.4 Gilbert syndrome
CPT/HCPCS: 36415; 80053; 82232; 82784; 83521; 84155; 84165; 85025; 86334

== ENCOUNTER → 2024-07-31 09:02 | Outpatient (REF) | payer OTHER, SELFPAY ==
[2024-07-31 09:47] LABS: % Basophils 3.4 % (0-2); % Eosinophils 10.1 % (0-6); % Immature Granulocytes 0.7 % (0-0.5); % Lymphocytes 20.2 % (20.5-51.1); % Monocytes 17.1 % (1.7-9.3); % Neutrophils 48.5 % (42.2-75.2); Absolute Basophils 0.1 10^3/uL (0-0.2); Absolute Eosinophils 0.4 10^3/uL (0-0.7); Absolute Lymphocytes 0.8 10^3/uL (1.2-3.4); Absolute Monocytes 0.7 10^3/uL (0.1-0.6); Hematocrit 36.6 % (39.0-52.0); Hemoglobin 12.7 g/dL (13.0-18.0); Mean Corp Hgb Conc. 34.7 g/dL (33.0-37.0); Mean Corpuscular Volume 103.7 fL (80.0-94.0); Mean Platelet Volume 9.4 fL (7.4-10.4); Nucleated Red Blood Cells % 0 % (-); Platelet Count 270 10^3/uL (130-400); Red Blood Cell Count 3.53 10^6/uL (4.70-6.10); Red Cell Dist. Width 15.2 % (11.5-14.5); White Blood Cell Count 4.2 10^3/uL (4.8-10.8)
[2024-07-31 10:12] LABS: ALT (SGPT) 17 U/L (0-50); AST (SGOT) 17 U/L (17-59); Albumin 3.6 g/dl (3.5-5.0); Alkaline Phosphatase 54 U/L (38-126); Blood Urea Nitrogen 16 mg/dl (9-20); Calcium 8.8 mg/dl (8.4-10.2); Carbon Dioxide 25 mmol/L (22-30); Chloride 108 mmol/L (98-107); Glucose 87 mg/dl (70-99); Potassium 4.3 mmol/L (3.5-5.1); Sodium 139 mmol/L (135-145); Total Bilirubin 2.8 mg/dl (0.2-1.3); Total Protein 5.3 g/dl (6.3-8.2); eGFR > 60.00
[2024-08-01 23:22] LABS: Beta-2-Microglobulin 2.2 mg/L (<=3.0)
[2024-08-03 01:07] LABS: Albumin 3.84 g/dL (3.75-5.01); Alpha 1 Globulin 0.31 g/dL (0.19-0.46); Alpha 2 Globulin 0.55 g/dL (0.48-1.05); Free Kappa Light Chains,Quant 9.61 mg/L (3.30-19.40); Free Lambda Light Chains,Quant 6.71 mg/L (5.71-26.30); IgA 34 mg/dL (68-408); IgG 386 mg/dL (768-1632); IgM 29 mg/dL (35-263); Immunofixation Electrophoresis IFE Done; Kappa/Lambda Fr Light Ratio 1.43 (0.26-1.65); Total Protein-Electrophoresis 5.6 g/dL (6.3-8.2)
== END ==
LOC: REG 09:02
PROVIDERS: ATTENDING PHYSICIAN Internal Medicine Hematology & Oncology; FAMILY PHYSICIAN Registered Nurse
DX: C90.00 Multiple myeloma not having achieved remission (principal); E80.4 Gilbert syndrome
CPT/HCPCS: 36415; 80053; 82232; 82784; 83521; 84155; 84165; 85025; 86334

== ENCOUNTER → 2024-08-07 09:26 | Outpatient (REF) | payer OTHER, SELFPAY ==
[2024-08-07 10:54] LABS: Hematocrit 34.5 % (39.0-52.0); Mean Corp Hgb Conc. 34.8 g/dL (33.0-37.0); Mean Corpuscular Hgb 36.6 pg (27.0-31.0); Mean Corpuscular Volume 105.2 fL (80.0-94.0); Mean Platelet Volume 10.1 fL (7.4-10.4); Platelet Count 88 10^3/uL (130-400); Red Blood Cell Count 3.28 10^6/uL (4.70-6.10); White Blood Cell Count 2.7 10^3/uL (4.8-10.8)
[2024-08-07 11:01] LABS: ALT (SGPT) 15 U/L (0-50); AST (SGOT) 17 U/L (17-59); Albumin 3.9 g/dl (3.5-5.0); Alkaline Phosphatase 56 U/L (38-126); Blood Urea Nitrogen 20 mg/dl (9-20); Calcium 8.3 mg/dl (8.4-10.2); Carbon Dioxide 29 mmol/L (22-30); Chloride 103 mmol/L (98-107); Glucose 73 mg/dl (70-99); Sodium 138 mmol/L (135-145); Total Bilirubin 4.3 mg/dl (0.2-1.3); Total Protein 5.5 g/dl (6.3-8.2); eGFR > 60.00
[2024-08-07 12:03] LABS: Band Neutrophils 2 % (0-3); Eosinophils 12 % (0-6); Lymphocytes 21 % (20-51); Monocytes 26 % (2-9); Platelets Checked Yes; Segmented Neutrophils 38 % (42-75)
[2024-08-07 12:04] LABS: Hypochromasia 1+; Normal RBC Morphology No; Polychromasia 1+; Total Cells Counted 100
[2024-08-07 15:50] LABS: Direct Bilirubin 0.4 mg/dl (0.0-0.4)
== END ==
LOC: REG 09:26
PROVIDERS: ATTENDING PHYSICIAN Internal Medicine Hematology & Oncology; FAMILY PHYSICIAN Registered Nurse
DX: C90.00 Multiple myeloma not having achieved remission (principal); E80.4 Gilbert syndrome
CPT/HCPCS: 36415; 80053; 82248; 85025

== ENCOUNTER → 2024-08-12 07:22 | Outpatient (REF) | payer OTHER, SELFPAY ==
[2024-08-12 08:13] LABS: Hematocrit 36.3 % (39.0-52.0); Hemoglobin 12.5 g/dL (13.0-18.0); Mean Corp Hgb Conc. 34.4 g/dL (33.0-37.0); Mean Corpuscular Hgb 36.5 pg (27.0-31.0); Mean Corpuscular Volume 106.1 fL (80.0-94.0); Mean Platelet Volume 9.2 fL (7.4-10.4); Platelet Count 260 10^3/uL (130-400); Red Blood Cell Count 3.42 10^6/uL (4.70-6.10); Red Cell Dist. Width 14.8 % (11.5-14.5); White Blood Cell Count 3.3 10^3/uL (4.8-10.8)
[2024-08-12 08:37] LABS: ALT (SGPT) 18 U/L (0-50); AST (SGOT) 18 U/L (17-59); Albumin 3.8 g/dl (3.5-5.0); Alkaline Phosphatase 48 U/L (38-126); Blood Urea Nitrogen 16 mg/dl (9-20); Calcium 8.7 mg/dl (8.4-10.2); Carbon Dioxide 28 mmol/L (22-30); Chloride 107 mmol/L (98-107); Direct Bilirubin 0.1 mg/dl (0.0-0.4); Glucose 86 mg/dl (70-99); LDH 162 U/L (120-246); Potassium 4.1 mmol/L (3.5-5.1); Sodium 140 mmol/L (135-145); Total Bilirubin 2.4 mg/dl (0.2-1.3); Total Protein 5.7 g/dl (6.3-8.2); eGFR > 60.00
[2024-08-12 08:43] LABS: Absolute Neutrophils -Man Diff 1.3 10^3/uL (1.4-6.5); Band Neutrophils 0 % (0-3); Eosinophils 2 % (0-6); Lymphocytes 38 % (20-51); Monocytes 20 % (2-9); Platelets Checked Yes; Segmented Neutrophils 40 % (42-75)
[2024-08-12 08:44] LABS: Anisocytosis Slight; Normal RBC Morphology No; Total Cells Counted 100
[2024-08-14 15:33] LABS: Haptoglobin 56 mg/dL (30-200)
[2024-08-14 15:42] LABS: Beta-2-Microglobulin 2.2 mg/L (<=3.0)
== END ==
LOC: REG 07:22
PROVIDERS: ATTENDING PHYSICIAN Internal Medicine Hematology & Oncology; FAMILY PHYSICIAN Registered Nurse
DX: C90.00 Multiple myeloma not having achieved remission (principal); E80.4 Gilbert syndrome
CPT/HCPCS: 36415; 80053; 82232; 82248; 82784; 83010; 83521; 83615; 84155; 84165; 85025; 85045; 86334; 86880

== ENCOUNTER → 2024-08-28 08:24 | Outpatient (REF) | payer OTHER, SELFPAY ==
[2024-08-28 09:52] LABS: % Basophils 1.1 % (0-2); % Eosinophils 5.7 % (0-6); % Immature Granulocytes 0.5 % (0-0.5); % Lymphocytes 16.5 % (20.5-51.1); % Monocytes 16.2 % (1.7-9.3); Absolute Eosinophils 0.2 10^3/uL (0-0.7); Absolute Lymphocytes 0.6 10^3/uL (1.2-3.4); Absolute Monocytes 0.6 10^3/uL (0.1-0.6); Absolute Neutrophils 2.2 10^3/uL (1.4-6.5); Hematocrit 37.5 % (39.0-52.0); Mean Corp Hgb Conc. 34.7 g/dL (33.0-37.0); Mean Corpuscular Volume 106.8 fL (80.0-94.0); Mean Platelet Volume 10.7 fL (7.4-10.4); Nucleated Red Blood Cells % 0 % (-); Platelet Count 127 10^3/uL (130-400); Red Blood Cell Count 3.51 10^6/uL (4.70-6.10); Red Cell Dist. Width 13.7 % (11.5-14.5); White Blood Cell Count 3.7 10^3/uL (4.8-10.8)
[2024-08-28 10:58] LABS: PSA, Total - Screen 0.69 ng/ml (0.0-4.0); TSH Reflex To Free T4 0.71 uIU/ml (0.47-4.68)
[2024-08-28 11:14] LABS: ALT (SGPT) 15 U/L (0-50); AST (SGOT) 20 U/L (17-59); Albumin 3.9 g/dl (3.5-5.0); Alkaline Phosphatase 51 U/L (38-126); Blood Urea Nitrogen 19 mg/dl (9-20); Calcium 8.7 mg/dl (8.4-10.2); Carbon Dioxide 24 mmol/L (22-30); Chloride 110 mmol/L (98-107); Glucose 78 mg/dl (70-99); HDL Cholesterol 82 mg/dl; LDL Cholesterol, Calculated 90 mg/dl; Potassium 4.2 mmol/L (3.5-5.1); Sodium 138 mmol/L (135-145); Total Bilirubin 2.5 mg/dl (0.2-1.3); Total Cholesterol 194 mg/dl (50-199); Total Protein 5.7 g/dl (6.3-8.2); Triglyceride 110 mg/dl (10-149); Very Low Density Lipoprotein 22 mg/dl (0-30); eGFR > 60.00
== END ==
LOC: REG 08:24
PROVIDERS: ATTENDING PHYSICIAN Internal Medicine Hematology & Oncology; FAMILY PHYSICIAN Registered Nurse
DX: C90.00 Multiple myeloma not having achieved remission (principal); E80.4 Gilbert syndrome; Z00.00 Encounter for general adult medical examination without abnormal findings; Z12.5 Encounter for screening for malignant neoplasm of prostate
CPT/HCPCS: 80053; 80061; 84443; 85025; G0103

== ENCOUNTER → 2024-09-04 10:22 | Outpatient (REF) | payer OTHER, SELFPAY ==
[2024-09-04 11:30] LABS: % Basophils 3.2 % (0-2); % Eosinophils 17.5 % (0-6); % Immature Granulocytes 0.6 % (0-0.5); % Monocytes 19.4 % (1.7-9.3); % Neutrophils 32.3 % (42.2-75.2); Absolute Basophils 0.1 10^3/uL (0-0.2); Absolute Eosinophils 0.6 10^3/uL (0-0.7); Absolute Lymphocytes 0.9 10^3/uL (1.2-3.4); Absolute Monocytes 0.6 10^3/uL (0.1-0.6); Hematocrit 41.2 % (39.0-52.0); Hemoglobin 14.2 g/dL (13.0-18.0); Mean Corp Hgb Conc. 34.5 g/dL (33.0-37.0); Mean Corpuscular Hgb 36.3 pg (27.0-31.0); Mean Corpuscular Volume 105.4 fL (80.0-94.0); Mean Platelet Volume 9.9 fL (7.4-10.4); Nucleated Red Blood Cells % 0 % (-); Platelet Count 235 10^3/uL (130-400); Red Blood Cell Count 3.91 10^6/uL (4.70-6.10); Red Cell Dist. Width 13.1 % (11.5-14.5); White Blood Cell Count 3.2 10^3/uL (4.8-10.8)
[2024-09-04 12:02] LABS: ALT (SGPT) 18 U/L (0-50); AST (SGOT) 25 U/L (17-59); Albumin 4.2 g/dl (3.5-5.0); Alkaline Phosphatase 45 U/L (38-126); Blood Urea Nitrogen 24 mg/dl (9-20); Calcium 9.2 mg/dl (8.4-10.2); Carbon Dioxide 25 mmol/L (22-30); Chloride 108 mmol/L (98-107); Glucose 84 mg/dl (70-99); Potassium 4.9 mmol/L (3.5-5.1); Sodium 139 mmol/L (135-145); Total Bilirubin 2.5 mg/dl (0.2-1.3); Total Protein 6.4 g/dl (6.3-8.2); eGFR > 60.00
== END ==
LOC: REG 10:22
PROVIDERS: ATTENDING PHYSICIAN Internal Medicine Hematology & Oncology; FAMILY PHYSICIAN Registered Nurse
DX: C90.00 Multiple myeloma not having achieved remission (principal); E80.4 Gilbert syndrome
CPT/HCPCS: 36415; 80053; 85025

== ENCOUNTER → 2024-09-11 09:30 | Outpatient (REF) | payer OTHER, SELFPAY ==
[2024-09-11 10:16] LABS: Hematocrit 38.7 % (39.0-52.0); Hemoglobin 13.3 g/dL (13.0-18.0); Mean Corp Hgb Conc. 34.4 g/dL (33.0-37.0); Mean Corpuscular Hgb 35.8 pg (27.0-31.0); Mean Corpuscular Volume 104.3 fL (80.0-94.0); Red Blood Cell Count 3.71 10^6/uL (4.70-6.10); Red Cell Dist. Width 12.7 % (11.5-14.5); White Blood Cell Count 3.3 10^3/uL (4.8-10.8)
[2024-09-11 11:18] LABS: ALT (SGPT) 15 U/L (0-50); AST (SGOT) 15 U/L (17-59); Albumin 3.6 g/dl (3.5-5.0); Alkaline Phosphatase 53 U/L (38-126); Blood Urea Nitrogen 13 mg/dl (9-20); Calcium 8.7 mg/dl (8.4-10.2); Carbon Dioxide 29 mmol/L (22-30); Chloride 106 mmol/L (98-107); Glucose 93 mg/dl (70-99); Potassium 3.9 mmol/L (3.5-5.1); Sodium 139 mmol/L (135-145); Total Bilirubin 2.3 mg/dl (0.2-1.3); Total Protein 5.5 g/dl (6.3-8.2); eGFR > 60.00
[2024-09-11 13:41] LABS: Mean Platelet Volume 10.5 fL (7.4-10.4)
[2024-09-11 13:42] LABS: Platelet Count 112 10^3/uL (130-400)
[2024-09-11 13:49] LABS: Segmented Neutrophils 57 % (42-75)
[2024-09-11 13:50] LABS: Absolute Neutrophils -Man Diff 1.9 10^3/uL (1.4-6.5); Band Neutrophils 1 % (0-3); Eosinophils 9 % (0-6); Lymphocytes 19 % (20-51); Monocytes 14 % (2-9); Platelets Checked Yes
[2024-09-11 13:51] LABS: Anisocytosis Slight; Hypochromasia Slight; Normal RBC Morphology No; Ovalocytes Slight; Total Cells Counted 100
[2024-09-13 04:49] LABS: Beta-2-Microglobulin 2.7 mg/L (<=3.0)
[2024-09-14 00:20] LABS: Albumin 3.43 g/dL (3.75-5.01); Alpha 1 Globulin 0.31 g/dL (0.19-0.46); Alpha 2 Globulin 0.58 g/dL (0.48-1.05); Free Lambda Light Chains,Quant 4.21 mg/L (5.71-26.30); IgA 27 mg/dL (68-408); IgG 332 mg/dL (768-1632); IgM 14 mg/dL (35-263); Immunofixation Electrophoresis IFE Done; Kappa/Lambda Fr Light Ratio 2.14 (0.26-1.65); Total Protein-Electrophoresis 5.2 g/dL (6.3-8.2)
== END ==
LOC: REG 09:30
PROVIDERS: ATTENDING PHYSICIAN Internal Medicine Hematology & Oncology; FAMILY PHYSICIAN Registered Nurse
DX: C90.00 Multiple myeloma not having achieved remission (principal); E80.4 Gilbert syndrome
CPT/HCPCS: 36415; 80053; 82232; 82784; 83521; 84155; 84165; 85025; 86334

== ENCOUNTER → 2024-09-18 10:05 | Outpatient (REF) | payer OTHER, SELFPAY ==
[2024-09-18 10:57] LABS: % Basophils 6.5 % (0-2); % Eosinophils 5.9 % (0-6); % Immature Granulocytes 0.4 % (0-0.5); % Lymphocytes 27.2 % (20.5-51.1); % Monocytes 16.5 % (1.7-9.3); % Neutrophils 43.5 % (42.2-75.2); Absolute Basophils 0.3 10^3/uL (0-0.2); Absolute Eosinophils 0.3 10^3/uL (0-0.7); Absolute Lymphocytes 1.3 10^3/uL (1.2-3.4); Absolute Monocytes 0.8 10^3/uL (0.1-0.6); Absolute Neutrophils 2.1 10^3/uL (1.4-6.5); Hematocrit 39.6 % (39.0-52.0); Hemoglobin 14.2 g/dL (13.0-18.0); Mean Corp Hgb Conc. 35.9 g/dL (33.0-37.0); Mean Corpuscular Hgb 36.3 pg (27.0-31.0); Mean Corpuscular Volume 101.3 fL (80.0-94.0); Mean Platelet Volume 9.3 fL (7.4-10.4); Nucleated Red Blood Cells % 0 % (-); Platelet Count 412 10^3/uL (130-400); Red Blood Cell Count 3.91 10^6/uL (4.70-6.10); White Blood Cell Count 4.9 10^3/uL (4.8-10.8)
[2024-09-18 13:47] LABS: ALT (SGPT) 33 U/L (0-50); AST (SGOT) 27 U/L (17-59); Alkaline Phosphatase 68 U/L (38-126); Blood Urea Nitrogen 16 mg/dl (9-20); Calcium 9.1 mg/dl (8.4-10.2); Carbon Dioxide 22 mmol/L (22-30); Chloride 110 mmol/L (98-107); Glucose 89 mg/dl (70-99); Potassium 4.2 mmol/L (3.5-5.1); Sodium 140 mmol/L (135-145); Total Bilirubin 1.4 mg/dl (0.2-1.3); Total Protein 5.9 g/dl (6.3-8.2); eGFR > 60.00
== END ==
LOC: REG 10:05
PROVIDERS: ATTENDING PHYSICIAN Internal Medicine Hematology & Oncology; FAMILY PHYSICIAN Registered Nurse
DX: C90.00 Multiple myeloma not having achieved remission (principal); E80.4 Gilbert syndrome
CPT/HCPCS: 36415; 80053; 85025

== ENCOUNTER → 2024-09-25 07:55 | Outpatient (REF) | payer OTHER, SELFPAY ==
[2024-09-25 08:30] LABS: Hematocrit 38.3 % (39.0-52.0); Hemoglobin 13.3 g/dL (13.0-18.0); Mean Corp Hgb Conc. 34.7 g/dL (33.0-37.0); Mean Corpuscular Volume 103.8 fL (80.0-94.0); Mean Platelet Volume 10.3 fL (7.4-10.4); Platelet Count 128 10^3/uL (130-400); Red Blood Cell Count 3.69 10^6/uL (4.70-6.10); Red Cell Dist. Width 12.9 % (11.5-14.5)
[2024-09-25 09:51] LABS: ALT (SGPT) 18 U/L (0-50); AST (SGOT) 22 U/L (17-59); Albumin 3.7 g/dl (3.5-5.0); Alkaline Phosphatase 60 U/L (38-126); Blood Urea Nitrogen 17 mg/dl (9-20); Calcium 8.2 mg/dl (8.4-10.2); Carbon Dioxide 25 mmol/L (22-30); Chloride 108 mmol/L (98-107); Glucose 117 mg/dl (70-99); Potassium 4.1 mmol/L (3.5-5.1); Sodium 140 mmol/L (135-145); Total Bilirubin 1.9 mg/dl (0.2-1.3); Total Protein 5.5 g/dl (6.3-8.2); eGFR > 60.00
[2024-09-25 10:50] LABS: % Basophils 0.6 % (0-2); % Eosinophils 6.6 % (0-6); % Immature Granulocytes 0.4 % (0-0.5); % Lymphocytes 15.3 % (20.5-51.1); % Monocytes 6.8 % (1.7-9.3); % Neutrophils 70.3 % (42.2-75.2); Absolute Eosinophils 0.3 10^3/uL (0-0.7); Absolute Lymphocytes 0.8 10^3/uL (1.2-3.4); Absolute Monocytes 0.3 10^3/uL (0.1-0.6); Absolute Neutrophils 3.5 10^3/uL (1.4-6.5); Nucleated Red Blood Cells % 0.4 % (-)
== END ==
LOC: REG 07:55
PROVIDERS: ATTENDING PHYSICIAN Internal Medicine Hematology & Oncology; FAMILY PHYSICIAN Registered Nurse
DX: C90.00 Multiple myeloma not having achieved remission (principal); E80.4 Gilbert syndrome
CPT/HCPCS: 36415; 80053; 85025

== ENCOUNTER → 2024-10-02 08:44 | Outpatient (REF) | payer OTHER, SELFPAY ==
[2024-10-02 09:20] LABS: Hematocrit 39.6 % (39.0-52.0); Hemoglobin 13.6 g/dL (13.0-18.0); Mean Corp Hgb Conc. 34.3 g/dL (33.0-37.0); Mean Corpuscular Volume 102.6 fL (80.0-94.0); Nucleated Red Blood Cells % 0 % (-); Platelet Count 284 10^3/uL (130-400); Red Cell Dist. Width 13.3 % (11.5-14.5)
[2024-10-02 10:21] LABS: ALT (SGPT) 17 U/L (0-50); AST (SGOT) 16 U/L (17-59); Albumin 3.7 g/dl (3.5-5.0); Alkaline Phosphatase 70 U/L (38-126); Blood Urea Nitrogen 20 mg/dl (9-20); Calcium 9.0 mg/dl (8.4-10.2); Carbon Dioxide 23 mmol/L (22-30); Chloride 109 mmol/L (98-107); Glucose 108 mg/dl (70-99); Potassium 4.0 mmol/L (3.5-5.1); Sodium 138 mmol/L (135-145); Total Protein 5.5 g/dl (6.3-8.2); eGFR > 60.00
== END ==
LOC: REG 08:44
PROVIDERS: ATTENDING PHYSICIAN Internal Medicine Hematology & Oncology; FAMILY PHYSICIAN Registered Nurse
DX: C90.00 Multiple myeloma not having achieved remission (principal); E80.4 Gilbert syndrome
CPT/HCPCS: 36415; 80053; 85025

== ENCOUNTER → 2024-10-09 09:19 | Outpatient (REF) | payer OTHER, SELFPAY ==
[2024-10-09 09:51] LABS: Hematocrit 39.3 % (39.0-52.0); Hemoglobin 13.4 g/dL (13.0-18.0); Mean Corp Hgb Conc. 34.1 g/dL (33.0-37.0); Mean Corpuscular Volume 102.3 fL (80.0-94.0); Platelet Count 130 10^3/uL (130-400); Red Cell Dist. Width 13.0 % (11.5-14.5)
[2024-10-09 10:11] LABS: ALT (SGPT) 14 U/L (0-50); AST (SGOT) 15 U/L (17-59); Albumin 3.6 g/dl (3.5-5.0); Alkaline Phosphatase 58 U/L (38-126); Blood Urea Nitrogen 18 mg/dl (9-20); Calcium 8.9 mg/dl (8.4-10.2); Carbon Dioxide 31 mmol/L (22-30); Chloride 107 mmol/L (98-107); Glucose 105 mg/dl (70-99); Potassium 3.9 mmol/L (3.5-5.1); Sodium 139 mmol/L (135-145); Total Protein 5.5 g/dl (6.3-8.2); eGFR > 60.00
[2024-10-09 11:17] LABS: Absolute Neutrophils -Man Diff 1.1 10^3/uL (1.4-6.5); Anisocytosis 1+; Normal RBC Morphology No; Platelets Checked Yes; Total Cells Counted 100
[2024-10-12 01:33] LABS: Albumin 3.56 g/dL (3.75-5.01); Free Kappa Light Chains,Quant 11.98 mg/L (3.30-19.40); Free Lambda Light Chains,Quant 4.73 mg/L (5.71-26.30); Immunofixation Electrophoresis IFE Done; Kappa/Lambda Fr Light Ratio 2.53 (0.26-1.65); Total Protein-Electrophoresis 5.4 g/dL (6.3-8.2)
== END ==
LOC: REG 09:19
PROVIDERS: ATTENDING PHYSICIAN Internal Medicine Hematology & Oncology; FAMILY PHYSICIAN Registered Nurse
DX: C90.00 Multiple myeloma not having achieved remission (principal); E80.4 Gilbert syndrome
CPT/HCPCS: 36415; 71046; 80053; 82232; 82784; 83521; 84155; 84165; 85025; 86334

== ENCOUNTER → 2024-10-16 10:48 | Outpatient (REF) | payer OTHER, SELFPAY ==
[2024-10-16 11:27] LABS: Hematocrit 40.8 % (39.0-52.0); Hemoglobin 14.0 g/dL (13.0-18.0); Mean Corp Hgb Conc. 34.3 g/dL (33.0-37.0); Mean Corpuscular Volume 102.0 fL (80.0-94.0); Nucleated Red Blood Cells % 0 % (-); Platelet Count 196 10^3/uL (130-400); Red Cell Dist. Width 13.3 % (11.5-14.5)
[2024-10-16 11:59] LABS: ALT (SGPT) 14 U/L (0-50); AST (SGOT) 16 U/L (17-59); Albumin 3.8 g/dl (3.5-5.0); Alkaline Phosphatase 58 U/L (38-126); Blood Urea Nitrogen 18 mg/dl (9-20); Calcium 8.7 mg/dl (8.4-10.2); Carbon Dioxide 25 mmol/L (22-30); Chloride 106 mmol/L (98-107); Glucose 121 mg/dl (70-99); Potassium 4.0 mmol/L (3.5-5.1); Sodium 135 mmol/L (135-145); Total Protein 5.7 g/dl (6.3-8.2); eGFR > 60.00
== END ==
LOC: REG 10:48
PROVIDERS: ATTENDING PHYSICIAN Internal Medicine Hematology & Oncology; FAMILY PHYSICIAN Registered Nurse
DX: C90.00 Multiple myeloma not having achieved remission (principal); E80.4 Gilbert syndrome
CPT/HCPCS: 36415; 80053; 85025

== ENCOUNTER → 2024-10-23 09:34 | Outpatient (REF) | payer OTHER, SELFPAY ==
[2024-10-23 11:04] LABS: Hematocrit 38.3 % (39.0-52.0); Hemoglobin 13.6 g/dL (13.0-18.0); Mean Corp Hgb Conc. 35.5 g/dL (33.0-37.0); Mean Corpuscular Volume 100.3 fL (80.0-94.0); Platelet Count 161 10^3/uL (130-400); Red Cell Dist. Width 13.7 % (11.5-14.5)
[2024-10-23 11:18] LABS: ALT (SGPT) 17 U/L (0-50); AST (SGOT) 17 U/L (17-59); Albumin 3.7 g/dl (3.5-5.0); Alkaline Phosphatase 53 U/L (38-126); Blood Urea Nitrogen 18 mg/dl (9-20); Calcium 8.7 mg/dl (8.4-10.2); Carbon Dioxide 23 mmol/L (22-30); Chloride 107 mmol/L (98-107); Glucose 76 mg/dl (70-99); Potassium 4.0 mmol/L (3.5-5.1); Sodium 136 mmol/L (135-145); Total Protein 5.5 g/dl (6.3-8.2); eGFR > 60.00
[2024-10-23 11:37] LABS: Nucleated Red Blood Cells % 0 % (-)
== END ==
LOC: REG 09:34
PROVIDERS: ATTENDING PHYSICIAN Internal Medicine Hematology & Oncology; FAMILY PHYSICIAN Registered Nurse
DX: C90.00 Multiple myeloma not having achieved remission (principal); E80.4 Gilbert syndrome
CPT/HCPCS: 36415; 80053; 85025

== ENCOUNTER → 2024-11-13 09:40 | Outpatient (REF) | payer OTHER, SELFPAY ==
[2024-11-13 11:08] LABS: Hematocrit 39.4 % (39.0-52.0); Hemoglobin 13.6 g/dL (13.0-18.0); Mean Corp Hgb Conc. 34.5 g/dL (33.0-37.0); Mean Corpuscular Volume 101.8 fL (80.0-94.0); Platelet Count 130 10^3/uL (130-400); Red Cell Dist. Width 13.9 % (11.5-14.5)
[2024-11-13 11:15] LABS: ALT (SGPT) 16 U/L (0-50); AST (SGOT) 16 U/L (17-59); Albumin 3.7 g/dl (3.5-5.0); Alkaline Phosphatase 57 U/L (38-126); Blood Urea Nitrogen 12 mg/dl (9-20); Calcium 8.7 mg/dl (8.4-10.2); Carbon Dioxide 27 mmol/L (22-30); Chloride 107 mmol/L (98-107); Glucose 89 mg/dl (70-99); Potassium 3.9 mmol/L (3.5-5.1); Sodium 137 mmol/L (135-145); Total Protein 5.6 g/dl (6.3-8.2); eGFR > 60.00
[2024-11-13 12:45] LABS: Absolute Neutrophils -Man Diff 1.2 10^3/uL (1.4-6.5); Anisocytosis Slight; Normal RBC Morphology No; Platelets Checked Yes; Total Cells Counted 100
[2024-11-15 16:22] LABS: CMV Qnt NAAT Plasma Log IU/mL Not Detected log IU/mL; CMV Quant NAAT Plasma Interp Not Detected (Not Detected); CMV Quant by NAAT Plasma IU/mL Not Detected
[2024-11-16 02:05] LABS: Albumin 3.43 g/dL (3.75-5.01); Free Kappa Light Chains,Quant 15.50 mg/L (3.30-19.40); Free Lambda Light Chains,Quant 3.58 mg/L (5.71-26.30); Immunofixation Electrophoresis IFE Done; Kappa/Lambda Fr Light Ratio 4.33 (0.26-1.65); Total Protein-Electrophoresis 5.2 g/dL (6.3-8.2)
== END ==
LOC: REG 09:40
PROVIDERS: ATTENDING PHYSICIAN Internal Medicine Hematology & Oncology; FAMILY PHYSICIAN Registered Nurse
DX: C90.00 Multiple myeloma not having achieved remission (principal); E80.4 Gilbert syndrome
CPT/HCPCS: 36415; 80053; 82232; 82784; 83521; 84155; 84165; 85025; 86334; 87497

== ENCOUNTER → 2024-11-16 08:05 | Outpatient (REF) | payer OTHER, SELFPAY | LOC: RSP 08:05 | PROVIDERS: FAMILY PHYSICIAN Registered Nurse; REFERRING PHYSICIAN Internal Medicine Hematology & Oncology | DX: I42.7 Cardiomyopathy due to drug and external agent (principal); T45.1X5A Adverse effect of antineoplastic and immunosuppressive drugs, initial encounter; J98.4 Other disorders of lung; C90.00 Multiple myeloma not having achieved remission; E80.4 Gilbert syndrome | CPT/HCPCS: 88738; 93306; 93356; 94060; 94727; 94729 ==

== ENCOUNTER → 2024-11-20 10:09 | Outpatient (REF) | payer OTHER, SELFPAY ==
[2024-11-20 11:02] LABS: Hematocrit 38.6 % (39.0-52.0); Hemoglobin 13.6 g/dL (13.0-18.0); Mean Corp Hgb Conc. 35.2 g/dL (33.0-37.0); Mean Corpuscular Volume 101.0 fL (80.0-94.0); Nucleated Red Blood Cells % 0 % (-); Platelet Count 206 10^3/uL (130-400); Red Cell Dist. Width 14.0 % (11.5-14.5)
[2024-11-20 11:40] LABS: ALT (SGPT) 15 U/L (0-50); AST (SGOT) 17 U/L (17-59); Albumin 4.2 g/dl (3.5-5.0); Alkaline Phosphatase 53 U/L (38-126); Blood Urea Nitrogen 20 mg/dl (9-20); Calcium 9.2 mg/dl (8.4-10.2); Carbon Dioxide 25 mmol/L (22-30); Chloride 107 mmol/L (98-107); Glucose 84 mg/dl (70-99); Potassium 4.3 mmol/L (3.5-5.1); Sodium 137 mmol/L (135-145); Total Protein 6.0 g/dl (6.3-8.2); eGFR > 60.00
== END ==
LOC: REG 10:09
PROVIDERS: ATTENDING PHYSICIAN Internal Medicine Hematology & Oncology; FAMILY PHYSICIAN Registered Nurse
DX: C90.00 Multiple myeloma not having achieved remission (principal); E80.4 Gilbert syndrome
CPT/HCPCS: 36415; 80053; 85025

== ENCOUNTER → 2024-11-22 09:38 | Outpatient (REF) | payer OTHER, SELFPAY ==
[2024-11-23 19:33] LABS: Hepatitis B Surface Antigen Negative (Negative)
[2024-11-23 19:37] LABS: Hepatitis C Antibody Negative (Negative)
== END ==
LOC: REG 09:38
PROVIDERS: FAMILY PHYSICIAN Registered Nurse
DX: C90.00 Multiple myeloma not having achieved remission (principal)
CPT/HCPCS: 36415; 86644; 86704; 86705; 86706; 86803; 87340; 87389

== ENCOUNTER → 2024-12-04 15:15 | Outpatient (REF) | payer OTHER, SELFPAY | LOC: RAD 15:15 | PROVIDERS: ATTENDING PHYSICIAN Registered Nurse | DX: R05.1 Acute cough (principal); C90.00 Multiple myeloma not having achieved remission; D84.9 Immunodeficiency, unspecified | CPT/HCPCS: 71046 ==

== ENCOUNTER → 2024-12-19 09:02 | Outpatient (REF) | payer OTHER, SELFPAY ==
[2024-12-19 11:08] LABS: ALT (SGPT) 23 U/L (0-50); AST (SGOT) 27 U/L (17-59); Albumin 4.1 g/dl (3.5-5.0); Alkaline Phosphatase 67 U/L (38-126); Blood Urea Nitrogen 17 mg/dl (9-20); Calcium 9.7 mg/dl (8.4-10.2); Carbon Dioxide 25 mmol/L (22-30); Chloride 105 mmol/L (98-107); Glucose 97 mg/dl (70-99); Potassium 4.0 mmol/L (3.5-5.1); Sodium 137 mmol/L (135-145); Total Protein 6.3 g/dl (6.3-8.2); eGFR > 60.00
[2024-12-19 11:14] LABS: Hematocrit 42.0 % (39.0-52.0); Hemoglobin 14.6 g/dL (13.0-18.0); Mean Corp Hgb Conc. 34.8 g/dL (33.0-37.0); Mean Corpuscular Volume 101.4 fL (80.0-94.0); Nucleated Red Blood Cells % 0 % (-); Platelet Count 186 10^3/uL (130-400); Red Cell Dist. Width 13.0 % (11.5-14.5)
== END ==
LOC: REG 09:02
PROVIDERS: ATTENDING PHYSICIAN Internal Medicine Hematology & Oncology; FAMILY PHYSICIAN Registered Nurse
DX: C90.00 Multiple myeloma not having achieved remission (principal); E80.4 Gilbert syndrome
CPT/HCPCS: 36415; 80053; 85025

== ENCOUNTER → 2024-12-26 08:10 | Outpatient (REF) | payer OTHER, SELFPAY ==
[2024-12-26 09:38] LABS: Hematocrit 39.1 % (39.0-52.0); Hemoglobin 13.7 g/dL (13.0-18.0); Mean Corp Hgb Conc. 35.0 g/dL (33.0-37.0); Mean Corpuscular Volume 99.7 fL (80.0-94.0); Nucleated Red Blood Cells % 0 % (-); Platelet Count 128 10^3/uL (130-400); Red Cell Dist. Width 12.9 % (11.5-14.5)
[2024-12-26 10:00] LABS: ALT (SGPT) 20 U/L (0-50); AST (SGOT) 20 U/L (17-59); Albumin 3.8 g/dl (3.5-5.0); Alkaline Phosphatase 59 U/L (38-126); Blood Urea Nitrogen 15 mg/dl (9-20); Calcium 8.8 mg/dl (8.4-10.2); Carbon Dioxide 27 mmol/L (22-30); Chloride 107 mmol/L (98-107); Glucose 93 mg/dl (70-99); Potassium 3.9 mmol/L (3.5-5.1); Sodium 138 mmol/L (135-145); Total Protein 5.8 g/dl (6.3-8.2); eGFR > 60.00
== END ==
LOC: REG 08:10
PROVIDERS: ATTENDING PHYSICIAN Internal Medicine Hematology & Oncology; FAMILY PHYSICIAN Registered Nurse
DX: C90.00 Multiple myeloma not having achieved remission (principal); E80.4 Gilbert syndrome
CPT/HCPCS: 36415; 80053; 82232; 82784; 83521; 84155; 84165; 85025; 86334

== ENCOUNTER → 2025-03-08 13:55 | Outpatient (REF) | payer OTHER, SELFPAY ==
[2025-03-08 15:09] LABS: Hematocrit 41.1 % (39.0-52.0); Hemoglobin 13.9 g/dL (13.0-18.0); Mean Corp Hgb Conc. 33.8 g/dL (33.0-37.0); Mean Corpuscular Volume 100.5 fL (80.0-94.0); Nucleated Red Blood Cells % 0 % (-); Platelet Count 151 10^3/uL (130-400); Red Cell Dist. Width 14.7 % (11.5-14.5)
== END ==
LOC: REG 13:55
PROVIDERS: ATTENDING PHYSICIAN Registered Nurse
DX: R05.1 Acute cough (principal)
CPT/HCPCS: 36415; 85025